=== PATIENT | female | born 1955 | race Caucasian/White ===

== ENCOUNTER 2017-09-18 15:23 | Emergency (ER) | payer SELFPAY ==
[2017-09-18 15:24] VITALS: BP 167/83; PULSE 115; RESP 22; TEMP 36.7; O2SAT 97; BMI 61.0
--- NOTE | 2017-09-18 15:45 | ED.VISSUMM ---
- ER Visit Summary Date of Service: 09/18/17 Chief Complaint: Allergic reaction History of Present Illness: The patient is a 62 F presenting with possible allergic reaction. Patient states around 11:20 AM she took a probiotic. This is the first time she has taken this medication. She states around noon she took a nap and when she woke up at 130pm she had a diffuse rash consistent with hives. She states she felt itching in her mouth and her tongue felt mildly swollen. She went to the pharmacy to have them evaluate her symptoms. The pharmacist called EMS. She was given Benadryl prior to arrival. Her symptoms are now resolving. Physical Examination: Vitals are stable. Patient is afebrile. Alert no acute distress. HEENT exam is unremarkable. No tongue swelling. No pharyngeal edema. Neck is supple. Lungs are clear and equal bilaterally. No wheezing. Heart is regular rate and rhythm. Abdomen is soft nontender nondistended. Extremities are unremarkable. Skin is warm and dry. No rash. No focal neurologic deficit. Remainder of exam is unremarkable. Emergency Department Course and Treatment: Patient is given Solu-Medrol IV. She is requesting to take her home dose of Ativan. Urinalysis is unremarkable. She was observed in the ED and had resolution of her symptoms. On repeat exam she has no tongue swelling or pharyngeal edema. Lungs are clear to auscultation bilaterally. She has no rash. Advised to discontinue use of probiotic. She is advised to follow-up with her primary care physician. Advised return ED if worsening complaints. Disposition: Discharge home Impression: Allergic reaction This note was generated with [employer] dictation software. It may contain incorrect words, spelling, and punctuation that were not noted in review of the chart prior to signing ED Disposition - Plan for ED Patient: Chief Complaint: Allergic Reaction Instructions: ED Drug React Allergic Referrals: Bradly Gutierres MD [Primary Care Provider] -
[2017-09-18 15:48] VITALS: BP 178/64; PULSE 93; RESP 15; O2SAT 97
[2017-09-18] MEDS: MethylPREDNISolone 125 MG/2 ML Vial IV (15:54)
[2017-09-18 16:00] LABS: Bacteria 0 SEEN /hpf (None Seen); Mucous, Urine 0 SEEN /hpf (<or=2+); Red Blood Cells-Urine 0 SEEN /hpf (0-5); Squamous Epithelial Cells - UA 0 SEEN /hpf (5-10); White Blood Cells 0 SEEN /hpf (0-5)
[2017-09-18 16:02] LABS: Color, Urine Yellow (Yellow); Glucose, Dipstick Normal (Normal); Ketone-Dipstick Negative (Negative); Leukocyte Esterase-Dipstick 25 /ul (Negative); Nitrite-Dipstick Negative (Negative); Occult Blood-Urine Negative /ul (Negative); Protein-Dipstick Negative (Negative); Urine Bilirubin Dipstick Negative (Negative); Urine Clarity Clear (Clear); Urine Urobilinogen Normal (Normal)
--- NOTE | 2017-09-18 16:33 | ED.DEP ---
ED Disposition - Plan for ED Patient: Chief Complaint: Allergic Reaction Instructions: ED Drug React Allergic Referrals: Bradly Gutierres MD [Primary Care Provider] -
[2017-09-18 18:02] VITALS: BP 158/59; PULSE 90; RESP 12; O2SAT 95
[2017-09-18 18:26] VITALS: BP 158/59; PULSE 78; RESP 15; O2SAT 95
== END 2017-09-18 18:34 | disposition home or self-care (01) ==
PROVIDERS: Emergency Provider Emergency Medicine; Family Provider Family Medicine; PCP Family Medicine
DX: T78.40XA Allergy, unspecified, initial encounter (principal); X58.XXXA Exposure to other specified factors, initial encounter; K21.9 Gastro-esophageal reflux disease without esophagitis; E11.9 Type 2 diabetes mellitus without complications; I10 Essential (primary) hypertension; F32.9 Major depressive disorder, single episode, unspecified; Z79.82 Long term (current) use of aspirin; Z79.84 Long term (current) use of oral hypoglycemic drugs; Z79.899 Other long term (current) drug therapy
CPT/HCPCS: 81001; 96374; 99284

== ENCOUNTER → 2020-04-20 14:07 | Outpatient (CLI) | payer MEDICARE, OTHER, SELFPAY ==
[2020-04-20 17:29] LABS: Absolute Lymphocyte Count 2.02 X10^3/uL (0.83-4.51); Absolute Neutrophil Count 6.6 X10^3/uL (2.0-7.7); Basophil# 0.06 X10^3/uL; Basophil% 0.7 % (0-1); Eosinophil# 0.05 X10^3/uL; Eosinophils% 0.5 % (0-5); Hematocrit 39.6 % (37-47); Hemoglobin 12.4 g/dL (12.0-15.0); Lymphocyte # 2.02 X10^3/ul (4.0); Mean Corp Hgb Conc 31.3 g/dL (32-36); Mean Corpuscular Hgb 28.4 pg (27.0-32.0); Mean Corpuscular Volume 90.8 fL (81-99); Monocyte# 0.44 X10^3/uL; Monocyte% 4.8 % (0-10); NRBC Flagged by Analyzer 0 % (0-5); Neutrophil # 6.57 X10^3/uL (2.7-7.7); Neutrophil % 71.5 % (47-70); Platelet Count 326 K/mm3 (150-450); RBC Distribution Width CV 13.2 % (11.6-14.6); RBC Distribution Width SD 44.3 fl (35.1-43.9); Red Blood Count 4.36 M/mm3 (4.2-5.4); White Blood Count 9.2 K/mm3 (4.4-11.0)
[2020-04-20 17:41] LABS: Erythrocyte Sedimentation Rate 14 mm/hr (0-30)
[2020-04-20 18:03] LABS: ALB/GLOB Ratio 1.1 RATIO (0.9-2.4); AST(SGOT) 14 U/L (15-37); Alanine Aminotransfer ALT/SGPT 20 U/L (13-56); Albumin, Serum 4.2 g/dL (3.2-5.0); Alkaline Phosphatase 65 U/L (45-117); Anion Gap 6 (5-15); BUN 27 mg/dL (7-18); BUN/Creat Ratio 20.5 RATIO (10-20); CRP < 2.90 mg/L (0.0-3.0); Calcium,Total 9.4 mg/dL (8.5-10.1); Chloride 106 mmol/L (98-107); Creatinine, Serum 1.32 mg/dL (0.55-1.02); EST Glomerular Filtration Rate 43 mL/min (>60); Est Glom Filt Rate - Afr Amer 52 mL/min (>60); Globulin 3.7 g/dL (2.2-4.2); Glucose 100 mg/dL (74-106); Potassium 4.8 mmol/L (3.5-5.1); Protein, Total 7.9 g/dL (6.4-8.2); Rheumatoid Factor < 10.0 IU/mL (<15); Sodium Level 137 mmol/L (136-145)
[2020-04-21 10:38] LABS: Hepatitis B Surface Antibody Non-Reactive; Hepatitis B Surface Antigen Non-Reactive (Nonreactive); Hepatitis C Antibody Non-Reactive (Nonreactive)
[2020-04-22 16:56] LABS: ANTINUCLEAR ANTIBODIES DIRECT Negative (Negative)
[2020-04-24 10:59] LABS: CCP IgG Antibodies 7 units (0-19); Hepatitis B Core AB IgM Negative (Negative)
== END ==
PROVIDERS: PCP Family Medicine; Referring Provider Internal Medicine Rheumatology; Visit Provider Internal Medicine Rheumatology
DX: M06.4 Inflammatory polyarthropathy (principal); M79.7 Fibromyalgia; M19.041 Primary osteoarthritis, right hand; M50.30 Other cervical disc degeneration, unspecified cervical region; M47.892 Other spondylosis, cervical region; M47.897 Other spondylosis, lumbosacral region; K21.9 Gastro-esophageal reflux disease without esophagitis; I10 Essential (primary) hypertension; E11.9 Type 2 diabetes mellitus without complications; F41.9 Anxiety disorder, unspecified; J30.9 Allergic rhinitis, unspecified
CPT/HCPCS: 36415; 80053; 85025; 85652; 86038; 86140; 86200; 86431; 86705; 86706; 86803; 87340

== ENCOUNTER 2020-11-01 18:30 | Inpatient (IN) | payer MEDICARE, SELFPAY ==
[2020-11-01 16:38] VITALS: BMI 25.1
[2020-11-01 17:38] VITALS: BP 144/53; PULSE 77; RESP 18; TEMP 36.7; O2SAT 98
--- NOTE | 2020-11-01 18:21 | PCM.HP.STD ---
HPI - General General Date of Admission: 11/01/20 HPI Narrative RUSTY SIBLEY, is a 65 F who presents as a direct admit from [facility] on account of hyponatremia. Patient has an extensive past medical history as outlined. She went to the outside hospital on 11/01/2020 with a complaint of abdominal pain and bloating. She had been seen on 10/28/2020 for similar symptoms and had a CT of the abdomen done on outpatient basis 2 days prior to this admission on account of abdominal pain which was reportedly normal. She still however had abdominal pain though she did not have any nausea vomiting or diarrhea. She went into the [facility] ED and was found to have a sodium of 117. According to the ED doctor over there, her sodium usually runs in the 120s. The reason for the low sodium is unclear. She denies having any history of low sodium. She denies being a chronic alcohol user and also denies any thyroid problems. Her labs that were unremarkable and she was hydrated with IV fluids and transferred to [facility] for further work-up. Patient does have a history of smoking but has not been screened for lung cancer before. On arrival, vitals show blood pressure 144/53, pulse rate of 77 and respiratory of 18 with temperature 98 Fahrenheit. She has been admitted to be managed for acute on chronic hyponatremia. [facility] Medical History Anxiety Diabetes Fibromyalgia Hypertension Osteoporosis Rheumatoid arthritis Smoker Home Medications aspirin 325 mg PO 0400 09/18/17 [History Last Taken 11/01/20 04:00] guaifenesin [Mucus Relief] 400 mg PO 0400,1000,1600 09/18/17 [History Last Taken Unknown] lisinopril 40 mg PO 1000 09/18/17 [History Last Taken 11/01/20 10:00] lorazepam 1 mg PO 0400,1000,1600,2200 09/18/17 [History Last Taken 11/01/20 10:00] metformin 750 mg PO 2200 09/18/17 [History Last Taken 10/31/20 22:00] omeprazole 40 mg PO 0400 09/18/17 [History Last Taken 11/01/20 04:00] prednisone 5 mg PO 0800 09/18/17 [History Last Taken 11/01/20 08:00] acetaminophen [Tylenol Ex Str Rapid Release] 1,000 mg PO 1000,1600,2200 11/01/20 [History Last Taken 11/01/20 10:00] amlodipine 10 mg PO 1800 11/01/20 [History Last Taken Unknown] cetirizine [Zyrtec] 20 mg PO 1000 11/01/20 [History Last Taken Unknown] famotidine [Pepcid] 20 mg PO 0400,1600 11/01/20 [History Last Taken Unknown] fluticasone propionate [Flonase Allergy Relief] 4 spray INTRANASAL 0800 11/01/20 [History Last Taken 11/01/20 08:00] hydroxychloroquine 200 mg PO 1000,2200 11/01/20 [History Last Taken Unknown] Allergy/AdvReac Type Severity Reaction Status Date / Time banana Allergy Angioedema Verified 09/18/17 15:28 sulfamethoxazole Allergy Hives Verified 11/01/20 17:34 [From Bactrim] trimethoprim [From Bactrim] Allergy Hives Verified 11/01/20 17:34 perfume AdvReac Shortness Verified 11/01/20 17:34 of breath FRUIT AdvReac Upset Uncoded 09/18/17 15:28 Stomach Social History Smoking Status: Current every day smoker ROS Constitutional Constitutional: Denies anorexia, change in weight, fatigue or fever(s) ENT HEENT: Denies dysphagia, epistaxis, headache(s), nasal discharge or sore throat Cardiovascular Cardiovascular: Reports chest pain; Denies edema, lightheadedness, orthopnea, palpitations, paroxysmal nocturnal dyspnea or rapid heart rate Respiratory/Chest Respiratory/Chest: Denies cough, hemoptysis, productive cough, shortness of breath at rest or shortness of breath with exertion Gastrointestinal Gastrointestinal: Reports abdominal pain; Denies constipation, diarrhea, dyspepsia, loose stools, nausea or vomiting Genitourinary Genitourinary: Denies burning urination, dysuria or urinary frequency Musculoskeletal Musculoskeletal: Denies arthralgias or back pain Neurologic Neurologic: Denies abnormal speech, confusion, focal weakness or seizures Psychiatric Psychiatric: Denies anxiety Hematologic/Lymphatic Hematologic/Lymphatic: Denies anemia Vital Signs Vital Signs Vital Signs: 11/01/20 17:38 Temperature 98.0 F Temperature Source Oral Pulse Rate 77 Respiratory Rate 18 Blood Pressure 144/53 H Blood Pressure Mean 83 Blood Pressure Source Monitor Blood Pressure Position Semi-Fowlers Blood Pressure Location Right Arm Pulse Ox 98 Oxygen Delivery Method Room Air Physical Exam Const alert, oriented x3 and no apparent distress General Appearance: cooperative HEENT normocephalic Eyes PERRL, EOMs intact bilaterally and conjunctivae normal Neck no lymphadenopathy Resp normal respiratory effort, no retractions, no use of accessory muscles and clear to auscultation bilaterally Cardio regular rate, regular rhythm, S1 normal heart sound, S2 normal heart sound and no murmurs GI soft to palpation, non-tender and non-distended GI Narrative: abdomen mildly distended, nontender, normal bowel sounds, no organomegaly. Extremity normal to inspection, full ROM and no clubbing, cyanosis or edema Peripheral Pulses: Yes pulses 2+ throughout Skin no rashes or lesions noted Neuro oriented x3 Sensorium / Orientation: awake and alert Psych affect normal Lab / Micro Data Result Diagrams: 11/01/20 19:16 11/02/20 05:58 Assessment & Plan Assessment/Plan (1) Hyponatremia: PLAN: #Acute on chronic hyponatremia Patient sodium was 117 at outside hospital. Apparently has a history of hyponatremia with sodium running in the 120s. Will check BMP. Check serum osmolality and urine osmolality as well as urine sodium Hydrate with IV fluid normal saline and trend sodium with every 4 hourly BMP. Consult nephrology. Patient will likely need CT of the chest on outpatient basis for lung cancer screening in light of her smoking history and her age. goal is to correct sodium between 6-8 mmol over next 24 hours. #Type 2 diabetes mellitus: On Metformin. Insulin sliding scale. Checks AC at bedtime. #History of rheumatoid arthritis: On hydroxychloroquine and prednisone 5 mg daily #Hypertension: On amlodipine 10 mg daily. #History of fibromyalgia: Stable #History of smoking: counseled to quit DVT prophylaxis: Lovenox CODE STATUS: Full code Patient counseled about difference between full code, DNR CCA and DNR CCA. Patient elects to be full code. Total [id number] time 17 minutes. Visit Charges Inpatient E&M: 98378 Init Hosp L3 Procedures Hospitalists Procedures: 61074 Advncd Care Plan 30 Min
[2020-11-01 18:59] VITALS: PULSE 89
[2020-11-01 19:38] LABS: Hematocrit 31.6 % (37-47); Hemoglobin 10.4 g/dL (12.0-15.0); Mean Corp Hgb Conc 32.9 g/dL (32-36); Mean Corpuscular Hgb 27.7 pg (27.0-32.0); Mean Platelet Vol. 8.8 fl (6.2-12.0); Platelet Count 255 K/mm3 (150-450); RBC Distribution Width SD 36.5 fl (35.1-43.9); Red Blood Count 3.76 M/mm3 (4.2-5.4); White Blood Count 6.1 K/mm3 (4.4-11.0)
[2020-11-01 19:49] LABS: Anion Gap 8 (5-15); BUN 11 mg/dL (7-18); BUN/Creat Ratio 8.3 RATIO (10-20); Calcium,Total 8.6 mg/dL (8.5-10.1); Chloride 95 mmol/L (98-107); Creatinine, Serum 1.33 mg/dL (0.55-1.02); EST Glomerular Filtration Rate 42 mL/min (>60); Est Glom Filt Rate - Afr Amer 51 mL/min (>60); Estimated Creatinine Clearance 41.97 ml/min; Glucose 167 mg/dL (74-106); Potassium 4.3 mmol/L (3.5-5.1); Sodium Level 125 mmol/L (136-145)
[2020-11-01] MEDS: 0.9% Saline Lock 10 ML Syringe IV (20:11)
[2020-11-01] MEDS: 0.9% Normal Saline 1,000 ML 125 ML IV (20:11)
[2020-11-01 20:30] LABS: Urine Sodium 36 mmol/L (Not Establ.)
[2020-11-01 20:31] LABS: Osmolality, Urine 126 mOsm/KG
[2020-11-01 20:32] LABS: Osmolality, Serum 267 mOsm/KG (280-301)
[2020-11-01 21:53] VITALS: BP 139/61; PULSE 77; RESP 16; TEMP 37.1; O2SAT 95
[2020-11-01] MEDS: LORazepam 1 MG Tablet PO (21:57)
[2020-11-01] MEDS: metFORMIN HCl 500 MG Tablet 750 MG PO (21:57)
[2020-11-01] MEDS: Hydroxychloroquine 200 MG Tablet PO (21:59)
[2020-11-01] MEDS: Acetaminophen 500 MG Tablet 1000 MG PO (21:59)
[2020-11-01 23:09] LABS: Anion Gap 7 (5-15); BUN 14 mg/dL (7-18); BUN/Creat Ratio 11.2 RATIO (10-20); Calcium,Total 8.4 mg/dL (8.5-10.1); Chloride 97 mmol/L (98-107); Creatinine, Serum 1.25 mg/dL (0.55-1.02); EST Glomerular Filtration Rate 46 mL/min (>60); Est Glom Filt Rate - Afr Amer 55 mL/min (>60); Estimated Creatinine Clearance 44.66 ml/min; Glucose 119 mg/dL (74-106); Potassium 4.2 mmol/L (3.5-5.1); Sodium Level 126 mmol/L (136-145)
[2020-11-02] VITALS (10 sets, daily range): BP systolic 116–138; BP diastolic 40–80; PULSE 72–87; RESP 15–18; TEMP 36.5–36.8; O2SAT 95–97
[2020-11-02] MEDS: LORazepam 1 MG Tablet PO ×4 (03:54→22:02)
[2020-11-02] MEDS: Aspirin E.C. 325 MG Tablet PO (03:56)
[2020-11-02] MEDS: Famotidine 20 MG Tablet PO ×2 (03:56→15:54)
[2020-11-02] MEDS: 0.9% Normal Saline 1,000 ML 125 ML IV (04:01)
[2020-11-02 06:55] LABS: Thyroid Stim Hormone (TSH) 4.32 uIU/mL (0.358-3.74)
[2020-11-02] MEDS: predniSONE 5 MG Tablet PO (08:20)
[2020-11-02] MEDS: Fluticasone 0.05% 1 SPRAY NASAL.SRY 4 SPRAY NASAL (08:20)
[2020-11-02 09:25] LABS: Anion Gap 4 (5-15); BUN 13 mg/dL (7-18); BUN/Creat Ratio 10.6 RATIO (10-20); Calcium,Total 8.5 mg/dL (8.5-10.1); Chloride 104 mmol/L (98-107); Creatinine, Serum 1.23 mg/dL (0.55-1.02); EST Glomerular Filtration Rate 46 mL/min (>60); Est Glom Filt Rate - Afr Amer 56 mL/min (>60); Estimated Creatinine Clearance 45.39 ml/min; Glucose 84 mg/dL (74-106); Potassium 4.5 mmol/L (3.5-5.1); Sodium Level 133 mmol/L (136-145)
[2020-11-02] MEDS: Lisinopril 40 MG Tablet PO (09:48)
[2020-11-02] MEDS: Hydroxychloroquine 200 MG Tablet PO ×2 (09:48→22:02)
[2020-11-02] MEDS: Loratadine 10 MG Tablet PO (09:48)
[2020-11-02] MEDS: Enoxaparin 40 MG/0.4 ML Syringe SC (09:48)
[2020-11-02] MEDS: Acetaminophen 500 MG Tablet 1000 MG PO ×3 (09:48→22:02)
--- NOTE | 2020-11-02 10:45 | CASEMGMT ---
RN IMELDA Face to Face with patient for initial transition planning/care coordination assessment. RN CM introduced self and role at [facility]. Patient lying in bed, alert and oriented. Patient willing to participate in assessment and is able to answer all questions appropriately. Care providers, pharmacy, and demographics verified. Patient wishes to discharge home, denies need for home health at this time. Patient states he has no further needs or concerns at this time. CM to follow for discharge planning needs that may arise. PCP: Bhavik Specialists: Tammie Maintenance Aide Preferred Pharmacy: [facility] Insurance: [employer] Prescription Benefit: yes Living Will/HPOA: none LNOK: sons Living Arrangements: Patient lives alone in a single floor apartment with 7 steps and railing to enter the home. Patient states she is independent and able to ambulate stairs. Transportation: self/sons DME/HHC: Patient states she has glucometer and testing supplies at home. Patient denies previous SNF or HHC. Disposition Plan: Patient to discharge home with family support and follow-up plans in place. Mary MOYER, RN, CM
--- NOTE | 2020-11-02 13:11 | PN.HOSP_ITS ---
Documented by User: Raymond CRAIG 11/02/20 13:23 Subjective Subjective Patient is a 65-year-old female who was observed finishing her breakfast and walking around the room,, alert and orient x3. Denies any change or progression in symptoms. Denies chest pain, shortness of breath, sputum production, palp itations, fever, chills, N/V/D. Objective Data Objective Data Vital Signs: Vital Signs Temp Pulse Resp BP Pulse Ox 98.0 F 77 16 127/46 H 96 11/02/20 12:27 11/02/20 12:27 11/02/20 12:27 11/02/20 12:27 11/02/20 12:27 Oxygen Delivery Method Room Air Weight: 165 lb 5.547 oz Body Mass Index (BMI) 25.1 Intake & Output: Intake and Output for Last 24 Hours 10/31/20 11/01/20 11/02/20 23:59 23:59 23:59 Intake Total 875 / 875 2304.17 / 2304.17 Balance 875 / 875 2304.17 / 2304.17 Lab / Micro Data Result Diagrams: 11/01/20 19:16 11/02/20 05:58 Labs: Laboratory Results - last 24 hr 11/01/20 11/01/20 11/01/20 18:20 19:16 19:16 WBC 6.1 RBC 3.76 L Hgb 10.4 L Hct 31.6 L MCV 84.0 MCH 27.7 MCHC 32.9 RDW Std Deviation 36.5 RDW Coeff of Keron 12.0 Plt Count 255 MPV 8.8 Sodium 125 L Potassium 4.3 Chloride 95 L Carbon Dioxide 22.0 Anion Gap 8 BUN 11 Creatinine 1.33 H Estim Creat Clear Calc 41.97 Est GFR (MDRD) Af Amer 51 L Est GFR (MDRD) Non-Af 42 L BUN/Creatinine Ratio 8.3 L Glucose 167 H Serum Osmolality 267 L Calcium 8.6 TSH Urine Osmolality Ur Random Sodium 11/01/20 11/01/20 11/02/20 20:00 22:40 05:58 WBC RBC Hgb Hct MCV MCH MCHC RDW Std Deviation RDW Coeff of Keron Plt Count MPV Sodium 126 L Potassium 4.2 Chloride 97 L Carbon Dioxide 22.0 Anion Gap 7 BUN 14 Creatinine 1.25 H Estim Creat Clear Calc 44.66 Est GFR (MDRD) Af Amer 55 L Est GFR (MDRD) Non-Af 46 L BUN/Creatinine Ratio 11.2 Glucose 119 H Serum Osmolality Calcium 8.4 L TSH 4.32 H Urine Osmolality 126 Ur Random Sodium 36 11/02/20 05:58 WBC RBC Hgb Hct MCV MCH MCHC RDW Std Deviation RDW Coeff of Keron Plt Count MPV Sodium 133 L Potassium 4.5 Chloride 104 Carbon Dioxide 25.0 Anion Gap 4 L BUN 13 Creatinine 1.23 H Estim Creat Clear Calc 45.39 Est GFR (MDRD) Af Amer 56 L Est GFR (MDRD) Non-Af 46 L BUN/Creatinine Ratio 10.6 Glucose 84 Serum Osmolality Calcium 8.5 TSH Urine Osmolality Ur Random Sodium Physical Exam Narrative See subjective. Const alert, oriented x3 and no apparent distress HEENT head/scalp atraumatic, moist oral mucous membranes and oropharynx normal Head and Scalp: normocephalic Eyes PERRL and EOMs intact bilaterally Neck no lymphadenopathy, supple and no JVD Resp normal respiratory effort, no retractions, no use of accessory muscles and clear to auscultation bilaterally Cardio regular rate, regular rhythm, no murmurs and no JVD GI normal to inspection, nondistended, normoactive bowel sounds, soft to palpation, non-tender and non-distended Extremity normal to inspection, full ROM and no clubbing, cyanosis or edema Skin no rashes or lesions noted, no wounds and skin turgor normal Neuro CN's II-XII intact bilaterally Psych affect normal Assessment & Plan Assessment/Plan (1) Diabetes mellitus type 2 in nonobese: (2) Rheumatoid arthritis: (3) Hypertension: (4) Tobacco abuse: (5) Hyponatremia: PLAN: 1) Hyponatremia Patient has a history of hyponatremia in the 120s. Sodium currently at 133, after 1000 mL normal saline infused. Serum osmolality 267. Nephrology consult ordered. Anticipate discharge tomorrow, after nephrology consult. Plan; sodium chloride 250 mL as needed, continue to monitor BMP. 2) DM2 Continue Metformin. 3) rheumatoid arthritis Continue hydroxychloroquine and prednisone. 4) tobacco abuse Cessation counseled. Plan; nicotine patch ordered, outpatient CT of the chest recommended given patient smoking history, age and chronic hyponatremia. 5) HTN Continue Norvasc and lisinopril. DVT prophylaxis -Lovenox SC Patient seen by Raymond Horton PA-C, under the supervision of Dr. Sauer. Documented by User: Dr. Paul Sauer MD 11/02/20 16:45 Subjective Subjective Patient admitted with hyponatremia. Denies fluid loss like vomiting, diarrhea. Denies chronic alcohol use. Patient has low solute intake. Objective Data Lab / Micro Data Result Diagrams: 11/01/20 19:16 11/02/20 05:58 Physical Exam Narrative General: Alert, Oriented x3, Cooperative HEENT: Atraumatic, PERRLA, EOMI, Normocephalic Oral: No Gingival or Mucosal Lesions/ Ulcerations Neck: Supple, No JVD, Negative Carotid Bruits Lungs: Air entry diminished in bilateral lung bases. No crepitation/rhonchi Cardiovascular: Regular rate, Regular Rhythm, Normal S1, Normal S2, No murmurs Abdomen: Bowel Sounds Present, Soft, Non Tender, Non-Distended : No renal angle tenderness. No suprapubic tenderness. Extremities: No edema, Capillary Refill Less than 3 Seconds Skin: No rashes, No breakdown Musculoskeletal: No Tenderness to Palpation of Joints or Extremities Neurological: Cranial nerves II-XII grossly intact, Deep Tendon Reflexes 2+/4 and Symmetrical, Neuro grossly intact Psych/Mental Status: Normal Affect, Appropriate. Assessment & Plan Assessment/Plan (1) Hyponatremia: PLAN: This patient was seen in conjunction with RAFA Hurtado. I have independently interviewed and examined the patient and reviewed pertinent history, examination findings, laboratory and plan of management. I have reviewed the note and agree with the documented findings with the few additional points. In brief, patient was directly admitted from [facility] for hypo natremia. Patient has mild abdominal pain and bloating and CT abdomen was reported normal about 2 days ago as an outpatient. Sodium was 117/20 ED but currently 133. Serum osmolality 267, urine osmolarity 126, urine sodium 36. District Resource Officer is consulted. I think her hyponatremia is mainly low solute intake related and is hypotonic isovolemic hyponatremia. Patient is started on desmopressin and D5W as sodium is corrected too rapidly. Other comorbidities as mentioned above. I have discussed my assessment with RAFA Hurtado and orders have been reviewed.
--- NOTE | 2020-11-02 14:43 | PCM.CONS.R ---
Assessment & Plan Assessment/Plan (1) Hyponatremia: PLAN: Sodium was 117 yesterday at 11:40 AM and 126 2 days prior to that and today is 133. Ordered stat DDAVP and also D5 water to relower the sodium as it corrected too fast considering this was chronic hNA per outside hospital labs.U osm was 126 yesterday. From history unclear what was the stimulus for ADH release but it seems to be resolved now. After 2 hours of D5 water we will check a BMP stat and decide the need for further D5 water or not.d/w patient and RN and STENCIL CUTTER at length.Thanks for consult. HPI Consult Data Date of Consult: 11/02/20 HPI Narrative HPI Narrative: .RUSTY SIBLEY, is a 65 F who presents From [facility] as a direct admit for hyponatremia. She presented initially with abdominal pain and bloating and apparently she had a normal CT abdomen 2 days prior to that. Her sodium was 117 11.40 am yesterday Denies nausea vomiting or diarrhea. States she has chronic abdominal pain denies taking any diuretics. Sodium was 126 yesterday 10:40 PM and 133 today at 5:58 AM. There is no repeat sodium. Her previous sodium was 137 in April 2020. She denies headache focal weakness. Denies taking NSAIDs at home. [facility] Medical History Anxiety Diabetes Fibromyalgia Hypertension Osteoporosis Rheumatoid arthritis Smoker Home Medications aspirin 325 mg PO 0400 09/18/17 [History Last Taken 11/01/20 04:00] guaifenesin [Mucus Relief] 400 mg PO 0400,1000,1600 09/18/17 [History Last Taken Unknown] lisinopril 40 mg PO 1000 09/18/17 [History Last Taken 11/01/20 10:00] lorazepam 1 mg PO 0400,1000,1600,2200 09/18/17 [History Last Taken 11/01/20 10:00] metformin 750 mg PO 2200 09/18/17 [History Last Taken 10/31/20 22:00] omeprazole 40 mg PO 0400 09/18/17 [History Last Taken 11/01/20 04:00] prednisone 5 mg PO 0800 09/18/17 [History Last Taken 11/01/20 08:00] acetaminophen [Tylenol Ex Str Rapid Release] 1,000 mg PO 1000,1600,2200 11/01/20 [History Last Taken 11/01/20 10:00] amlodipine 10 mg PO 1800 11/01/20 [History Last Taken Unknown] cetirizine [Zyrtec] 20 mg PO 1000 11/01/20 [History Last Taken Unknown] famotidine [Pepcid] 20 mg PO 0400,1600 11/01/20 [History Last Taken Unknown] fluticasone propionate [Flonase Allergy Relief] 4 spray INTRANASAL 0800 11/01/20 [History Last Taken 11/01/20 08:00] hydroxychloroquine 200 mg PO 1000,2200 11/01/20 [History Last Taken Unknown] Allergy/AdvReac Type Severity Reaction Status Date / Time banana Allergy Angioedema Verified 09/18/17 15:28 sulfamethoxazole Allergy Hives Verified 11/01/20 17:34 [From Bactrim] trimethoprim [From Bactrim] Allergy Hives Verified 11/01/20 17:34 perfume AdvReac Shortness Verified 11/01/20 17:34 of breath FRUIT AdvReac Upset Uncoded 09/18/17 15:28 Stomach Social History Smoking Status: Current every day smoker Physical Exam Const alert and no apparent distress General Appearance: comfortable HEENT normocephalic HEENT Narrative: atraumatic Neck General: normal visual inspection and trachea midline Resp normal respiratory effort and clear to auscultation bilaterally Cardio regular rate, regular rhythm, S1 normal heart sound and S2 normal heart sound GI soft to palpation and non-tender Extremity no clubbing, cyanosis or edema Neuro Sensorium / Orientation: awake and alert Lab / Micro Data Result Diagrams: 11/01/20 19:16 11/02/20 05:58 Labs: Laboratory Results - last 24 hr 11/01/20 11/01/20 11/01/20 18:20 19:16 19:16 WBC 6.1 RBC 3.76 L Hgb 10.4 L Hct 31.6 L MCV 84.0 MCH 27.7 MCHC 32.9 RDW Std Deviation 36.5 RDW Coeff of Keron 12.0 Plt Count 255 MPV 8.8 Sodium 125 L Potassium 4.3 Chloride 95 L Carbon Dioxide 22.0 Anion Gap 8 BUN 11 Creatinine 1.33 H Estim Creat Clear Calc 41.97 Est GFR (MDRD) Af Amer 51 L Est GFR (MDRD) Non-Af 42 L BUN/Creatinine Ratio 8.3 L Glucose 167 H Serum Osmolality 267 L Calcium 8.6 TSH Urine Osmolality Ur Random Sodium 11/01/20 11/01/20 11/02/20 20:00 22:40 05:58 WBC RBC Hgb Hct MCV MCH MCHC RDW Std Deviation RDW Coeff of Keron Plt Count MPV Sodium 126 L Potassium 4.2 Chloride 97 L Carbon Dioxide 22.0 Anion Gap 7 BUN 14 Creatinine 1.25 H Estim Creat Clear Calc 44.66 Est GFR (MDRD) Af Amer 55 L Est GFR (MDRD) Non-Af 46 L BUN/Creatinine Ratio 11.2 Glucose 119 H Serum Osmolality Calcium 8.4 L TSH 4.32 H Urine Osmolality 126 Ur Random Sodium 36 11/02/20 05:58 WBC RBC Hgb Hct MCV MCH MCHC RDW Std Deviation RDW Coeff of Keron Plt Count MPV Sodium 133 L Potassium 4.5 Chloride 104 Carbon Dioxide 25.0 Anion Gap 4 L BUN 13 Creatinine 1.23 H Estim Creat Clear Calc 45.39 Est GFR (MDRD) Af Amer 56 L Est GFR (MDRD) Non-Af 46 L BUN/Creatinine Ratio 10.6 Glucose 84 Serum Osmolality Calcium 8.5 TSH Urine Osmolality Ur Random Sodium
[2020-11-02] MEDS: 0.9% Saline Lock 10 ML Syringe IV ×3 (15:06→22:02)
[2020-11-02] MEDS: Desmopressin Acetate 4 MCG/ML Ampul 1 MCG IV (15:12)
[2020-11-02] MEDS: amLODIPine 10 MG Tablet PO (15:54)
[2020-11-02] MEDS: guaiFENesin/D-Methorphan TAB.SR.12H 1 TABLET PO (15:55)
[2020-11-02 18:09] LABS: Anion Gap 8 (5-15); BUN 21 mg/dL (7-18); BUN/Creat Ratio 12.9 RATIO (10-20); Calcium,Total 8.5 mg/dL (8.5-10.1); Chloride 101 mmol/L (98-107); Creatinine, Serum 1.63 mg/dL (0.55-1.02); EST Glomerular Filtration Rate 34 mL/min (>60); Est Glom Filt Rate - Afr Amer 41 mL/min (>60); Estimated Creatinine Clearance 34.25 ml/min; Glucose 103 mg/dL (74-106); Potassium 4.5 mmol/L (3.5-5.1); Sodium Level 131 mmol/L (136-145)
[2020-11-02 21:30] LABS: Anion Gap 7 (5-15); BUN 21 mg/dL (7-18); Calcium,Total 8.5 mg/dL (8.5-10.1); Chloride 99 mmol/L (98-107); EST Glomerular Filtration Rate 37 mL/min (>60); Est Glom Filt Rate - Afr Amer 45 mL/min (>60); Estimated Creatinine Clearance 37.22 ml/min; Glucose 79 mg/dL (74-106); Potassium 4.2 mmol/L (3.5-5.1); Sodium Level 129 mmol/L (136-145)
[2020-11-02] MEDS: metFORMIN HCl 500 MG Tablet 750 MG PO (22:02)
[2020-11-03 03:00] VITALS: BP 146/63; PULSE 78; RESP 16; TEMP 36.7; O2SAT 96
[2020-11-03] MEDS: LORazepam 1 MG Tablet PO ×2 (04:20→09:55)
[2020-11-03] MEDS: Aspirin E.C. 325 MG Tablet PO (04:20)
[2020-11-03] MEDS: Famotidine 20 MG Tablet PO (04:20)
[2020-11-03 04:47] VITALS: PULSE 77
[2020-11-03 05:24] LABS: Absolute Lymphocyte Count 1.81 X10^3/uL (0.83-4.51); Absolute Neutrophil Count 2.7 X10^3/uL (2.0-7.7); Basophil# 0.06 X10^3/uL; Basophil% 1.1 % (0-1); Eosinophil# 0.23 X10^3/uL; Eosinophils% 4.4 % (0-5); Hematocrit 31.1 % (37-47); Lymphocyte # 1.81 X10^3/ul (0.83-4.51); Lymphocyte % 34.5 % (19-41); Mean Corp Hgb Conc 32.2 g/dL (32-36); Mean Corpuscular Hgb 27.5 pg (27.0-32.0); Mean Corpuscular Volume 85.7 fL (81-99); Mean Platelet Vol. 8.8 fl (6.2-12.0); Monocyte# 0.49 X10^3/uL; Monocyte% 9.3 % (0-10); NRBC Flagged by Analyzer 0 % (0-5); Neutrophil # 2.65 X10^3/uL (2.7-7.7); Neutrophil % 50.5 % (47-70); Platelet Count 255 K/mm3 (150-450); RBC Distribution Width CV 12.3 % (11.6-14.6); RBC Distribution Width SD 38.5 fl (35.1-43.9); Red Blood Count 3.63 M/mm3 (4.2-5.4); White Blood Count 5.3 K/mm3 (4.4-11.0)
[2020-11-03 05:44] LABS: Anion Gap 6 (5-15); BUN 17 mg/dL (7-18); BUN/Creat Ratio 15.5 RATIO (10-20); Calcium,Total 8.1 mg/dL (8.5-10.1); Chloride 98 mmol/L (98-107); EST Glomerular Filtration Rate 53 mL/min (>60); Est Glom Filt Rate - Afr Amer 64 mL/min (>60); Estimated Creatinine Clearance 50.75 ml/min; Glucose 81 mg/dL (74-106); Potassium 4.2 mmol/L (3.5-5.1); Sodium Level 128 mmol/L (136-145)
[2020-11-03] MEDS: Pantoprazole Sodium 40 MG Tablet PO (06:30)
[2020-11-03 07:00] VITALS: PULSE 68
[2020-11-03] MEDS: predniSONE 5 MG Tablet PO (07:50)
[2020-11-03] MEDS: Fluticasone 0.05% 1 SPRAY NASAL.SRY 4 SPRAY NASAL (07:50)
[2020-11-03 09:00] VITALS: BP 132/46; PULSE 66; RESP 18; TEMP 36.6; O2SAT 98
[2020-11-03] MEDS: guaiFENesin/D-Methorphan TAB.SR.12H 1 TABLET PO (09:54)
[2020-11-03] MEDS: Acetaminophen 500 MG Tablet 1000 MG PO (09:54)
[2020-11-03] MEDS: Loratadine 10 MG Tablet PO (09:54)
[2020-11-03] MEDS: Enoxaparin 40 MG/0.4 ML Syringe SC (09:55)
[2020-11-03] MEDS: Hydroxychloroquine 200 MG Tablet PO (09:55)
[2020-11-03] MEDS: Lisinopril 40 MG Tablet PO (09:55)
--- NOTE | 2020-11-03 11:04 | DCINST_ITS ---
Discharge Instructions Diet Discharge Diet: No restrictions Activity Discharge Activity: Return to Normal Activity Follow Up Care Please Follow Up With: Primary care provider When: Within the next week. Test Results: Test results from this visit will be discussed in further detail at your follow-up appointment, if applicable. Discharge Plan Admission Admit Date/Time: 11/01/20 18:30 Primary Reason for Your Visit: Hyponatremia Attending Provider: Paul Sauer Primary Care Provider: Bradly Gutierres Consulting Providers: Brionna Carrillo Discharge Orders/Prescriptions Prescriptions: New Ensure Liquid 240 ml PO BID Qty: 3792 RF: 0 Continued metformin 500 MG tablet 750 mg PO 2200 RF: 0 prednisone 5 MG tablet 5 mg PO 0800 RF: 0 aspirin 325 MG tablet,delayed release (DR/EC) 325 mg PO 0400 RF: 0 omeprazole 20 MG capsule 40 mg PO 0400 RF: 0 lorazepam 1 MG tablet 1 mg PO 0400,1000,1600,2200 RF: 0 lisinopril 40 MG tablet 40 mg PO 1000 RF: 0 guaifenesin [Mucus Relief ER] 600 MG tablet extended release 12hr 400 mg PO 0400,1000,1600 RF: 0 cetirizine [Zyrtec] 10 mg Tablet 20 mg PO 1000 RF: 0 acetaminophen 500 mg Tablet 1,000 mg PO 1000,1600,2200 RF: 0 amlodipine 10 mg tablet 10 mg PO 1800 RF: 0 hydroxychloroquine 200 mg tablet 200 mg PO 1000,2200 RF: 0 fluticasone propionate [Flonase Allergy Relief] 50 mcg/actuation [place],Suspension 4 spray INTRANASAL 0800 RF: 0 famotidine [Pepcid] 20 mg Tablet 20 mg PO 0400,1600 RF: 0 Referrals / Follow Up: Bradly Gutierres MD [Primary Care Provider] - Disposition Disposition (needs filled in before D/C Order can be placed): Home, self care
--- NOTE | 2020-11-03 12:09 | DS.PCM_ITS ---
Documented by User: Raymond CRAIG 11/03/20 12:16 Providers Date of Admission: 11/01/20 Primary Care Physician: Dr. Bradly Gutierres MD Consultations 11/01/20 18:32 Consult: Nephrology Routine Consulting Provider: Brionna Carrillo Reason for Consult: hyponatremia EMERGENT Consult: No MD Notified: Yes Date Notified:: 11/01/20 Time Notified: 18:33 Method of Notification: Text Reason For Visit: HYPONATREMIA Diagnosis Discharge Diagnosis (1) Hyponatremia: Status: Acute Code(s): E87.1 - Hypo-osmolality and hyponatremia Medications at Discharge Home Medications aspirin 325 mg PO 0400 09/18/17 guaifenesin [Mucus Relief ER] 400 mg PO 0400,1000,1600 09/18/17 lisinopril 40 mg PO 1000 09/18/17 lorazepam 1 mg PO 0400,1000,1600,2200 09/18/17 metformin 750 mg PO 2200 09/18/17 omeprazole 40 mg PO 0400 09/18/17 prednisone 5 mg PO 0800 09/18/17 acetaminophen 1,000 mg PO 1000,1600,2200 11/01/20 amlodipine 10 mg PO 1800 11/01/20 cetirizine [Zyrtec] 20 mg PO 1000 11/01/20 famotidine [Pepcid] 20 mg PO 0400,1600 11/01/20 fluticasone propionate [Flonase Allergy Relief] 4 spray INTRANASAL 0800 11/01/20 hydroxychloroquine 200 mg PO 1000,2200 11/01/20 food supplemt, lactose-reduced [Ensure] 240 ml PO BID #3792 ml 11/03/20 Hospital Course Summary of Care Provided Minutes Spent on Discharge: 35 Hospital Course: 1) Hyponatremia Patient has a history of hyponatremia in the 120s. Serum osmolality 267, urine osmolality 126 an urine sodium is 36. Patient initiated on desmopressin and D5W due to rapid sodium overcorrection. Nephrology consult ordered. Sodium level is currently 128. Believe patients hyponatremia is due to low solute intake and is hypotonic isovolemic hyponatremia. Plan; ensure initiated at discharge 240 mL p.o. twice daily x1 week, follow-up with PCP within the next week. 2) DM2 Continue Metformin. 3) rheumatoid arthritis Continue hydroxychloroquine and prednisone. 4) tobacco abuse Cessation counseled. Plan; nicotine patch ordered, outpatient CT of the chest recommended given patient smoking history, age and chronic hyponatremia. 5) HTN Continue Norvasc and lisinopril. Patient seen by Raymond Horton PA-C, under the supervision of Dr. Sauer. Physical Exam Narrative Patient is a 65-year-old female comfortably resting in a chair, alert and oriented x3. Patient reports no change or progression of symptoms from yesterday, denies headache, vision changes or confusion. Patient reports her current status is that she feels fine, however is anxious regarding her diagnosis/prognosis. Const alert, oriented x3 and no apparent distress HEENT normocephalic, head/scalp atraumatic and hearing grossly normal bilaterally Eyes PERRL, EOMs intact bilaterally and conjunctivae normal Neck no lymphadenopathy, supple and no JVD Resp normal respiratory effort, no use of accessory muscles and clear to auscultation bilaterally Cardio regular rate, regular rhythm, no murmurs and no JVD GI normal to inspection, nondistended, normoactive bowel sounds, soft to palpation, non-tender and non-distended Extremity normal to inspection, full ROM and no clubbing, cyanosis or edema Skin no rashes or lesions noted, no wounds and no jaundice Neuro CN's II-XII intact bilaterally Psych affect normal ABG / Lab / Microbiology Data Result Diagrams: 11/03/20 04:48 11/03/20 04:48 Laboratory: Laboratory Results - last 24 hr 11/02/20 11/02/20 11/03/20 17:30 20:51 04:48 WBC 5.3 RBC 3.63 L Hgb 10.0 L Hct 31.1 L MCV 85.7 MCH 27.5 MCHC 32.2 RDW Std Deviation 38.5 RDW Coeff of Keron 12.3 Plt Count 255 MPV 8.8 Immature Gran % (Auto) 0.200 Neut % (Auto) 50.5 Lymph % (Auto) 34.5 [place] % (Auto) 9.3 Eos % (Auto) 4.4 Baso % (Auto) 1.1 H Absolute Neuts (auto) 2.7 Absolute Lymphs (auto) 1.81 Nucleated RBC % 0 Sodium 131 L 129 L Potassium 4.5 4.2 Chloride 101 99 Carbon Dioxide 22.0 23.0 Anion Gap 8 7 BUN 21 H 21 H Creatinine 1.63 H 1.50 H Estim Creat Clear Calc 34.25 37.22 Est GFR (MDRD) Af Amer 41 L 45 L Est GFR (MDRD) Non-Af 34 L 37 L BUN/Creatinine Ratio 12.9 14.0 Glucose 103 79 Calcium 8.5 8.5 11/03/20 04:48 WBC RBC Hgb Hct MCV MCH MCHC RDW Std Deviation RDW Coeff of Keron Plt Count MPV Immature Gran % (Auto) Neut % (Auto) Lymph % (Auto) [place] % (Auto) Eos % (Auto) Baso % (Auto) Absolute Neuts (auto) Absolute Lymphs (auto) Nucleated RBC % Sodium 128 L Potassium 4.2 Chloride 98 Carbon Dioxide 24.0 Anion Gap 6 BUN 17 Creatinine 1.10 H Estim Creat Clear Calc 50.75 Est GFR (MDRD) Af Amer 64 Est GFR (MDRD) Non-Af 53 L BUN/Creatinine Ratio 15.5 Glucose 81 Calcium 8.1 L D/C Instructions Discharge Diet: No restrictions Discharge Activity: Return to Normal Activity Please Follow Up With: Primary care provider When: Within the next week. Meaningful Use Info Meaningful Use Diagnoses (Choose all that apply): None applicable Discharge Plan Admission Admit Date/Time: 11/01/20 18:30 Primary Reason for Your Visit: Hyponatremia Attending Provider: Paul Sauer Primary Care Provider: Bradly Gutierres Consulting Providers: Brionna Carrillo Discharge Orders/Prescriptions Prescriptions: New Ensure Liquid 240 ml PO BID Qty: 3792 RF: 0 Continued metformin 500 MG tablet 750 mg PO 2200 RF: 0 prednisone 5 MG tablet 5 mg PO 0800 RF: 0 aspirin 325 MG tablet,delayed release (DR/EC) 325 mg PO 0400 RF: 0 omeprazole 20 MG capsule 40 mg PO 0400 RF: 0 lorazepam 1 MG tablet 1 mg PO 0400,1000,1600,2200 RF: 0 lisinopril 40 MG tablet 40 mg PO 1000 RF: 0 guaifenesin [Mucus Relief ER] 600 MG tablet extended release 12hr 400 mg PO 0400,1000,1600 RF: 0 cetirizine [Zyrtec] 10 mg Tablet 20 mg PO 1000 RF: 0 acetaminophen 500 mg Tablet 1,000 mg PO 1000,1600,2200 RF: 0 amlodipine 10 mg tablet 10 mg PO 1800 RF: 0 hydroxychloroquine 200 mg tablet 200 mg PO 1000,2200 RF: 0 fluticasone propionate [Flonase Allergy Relief] 50 mcg/actuation [place],Suspension 4 spray INTRANASAL 0800 RF: 0 famotidine [Pepcid] 20 mg Tablet 20 mg PO 0400,1600 RF: 0 Referrals / Follow Up: Bradly Gutierres MD [Primary Care Provider] - Disposition Disposition (needs filled in before D/C Order can be placed): Home, self care Documented by User: Dr. Paul Sauer MD 11/03/20 15:25 Providers Date of Admission: 11/01/20 Reason For Visit: HYPONATREMIA Medications at Discharge Home Medications aspirin 325 mg PO 0400 09/18/17 guaifenesin [Mucus Relief ER] 400 mg PO 0400,1000,1600 09/18/17 lisinopril 40 mg PO 1000 09/18/17 lorazepam 1 mg PO 0400,1000,1600,2200 09/18/17 metformin 750 mg PO 2200 09/18/17 omeprazole 40 mg PO 0400 09/18/17 prednisone 5 mg PO 0800 09/18/17 acetaminophen 1,000 mg PO 1000,1600,2200 11/01/20 amlodipine 10 mg PO 1800 11/01/20 cetirizine [Zyrtec] 20 mg PO 1000 11/01/20 famotidine [Pepcid] 20 mg PO 0400,1600 11/01/20 fluticasone propionate [Flonase Allergy Relief] 4 spray INTRANASAL 0800 11/01/20 hydroxychloroquine 200 mg PO 1000,2200 11/01/20 food supplemt, lactose-reduced [Ensure] 240 ml PO BID #3792 ml 11/03/20 Hospital Course Summary of Care Provided Hospital Course: This patient was seen in conjunction with RAFA Hurtado.? I have independently interviewed and examined the patient and reviewed pertinent history, examination findings, laboratory and plan of management.? I have? reviewed the note and agree with the documented findings with the few? additional points. In brief, patient was directly admitted from [facility] ER for hypo natremia.? Patient has mild abdominal pain and bloating and CT abdomen was reported normal about 2 days ago as an outpatient.? Sodium was 117 in ED but currently 133.? Serum osmolality 267, urine osmolarity 126, urine sodium 36.? Excavator Operator was consulted.? I think her hyponatremia is mainly low solute intake related and is hypotonic isovolemic hyponatremia.? SIADH not supported by low urine osmolality. Patient is started on desmopressin and D5W as sodium is corrected too rapidly. Sodium was decreased to 129 and today 128 probably effect of DDAVP/desmopressin. Patient was suggested to take Ensure and live 8 ounce, 350 senthil twice daily. Prescription given. Other comorbidities as mentioned above. Discharge medication reconciliation done. Discharge follow-up instructions completed. Discharge process discussed with the patient and all questions were answered to patient's satisfaction. Total time spent, exact 35 minutes on discharge meds reconciliation, examination, coordination of care with nurses and ancillary staff, review of imaging and blood test and discussion with the patient on follow-up instructions I have discussed my assessment with RAFA Hurtado and orders have been reviewed. Physical Exam Narrative Seen and examined. Denies headache, change in mental status, seizure or abnormal involuntary movement. Physical exam General: Alert, Oriented x3, Cooperative HEENT: Atraumatic, PERRLA, EOMI, Normocephalic Oral: No Gingival or Mucosal Lesions/ Ulcerations Neck: Supple, No JVD, Negative Carotid Bruits Lungs: Air entry diminished in bilateral lung bases. No crepitation/rhonchi Cardiovascular: Regular rate, Regular Rhythm, Normal S1, Normal S2, No murmurs Abdomen: Bowel Sounds Present, Soft, Non Tender, Non-Distended : No renal angle tenderness. No suprapubic tenderness. Extremities: No edema, Capillary Refill Less than 3 Seconds Skin: No rashes, No breakdown Musculoskeletal: No Tenderness to Palpation of Joints or Extremities Neurological: Cranial nerves II-XII grossly intact, Deep Tendon Reflexes 2+/4 and Symmetrical, Neuro grossly intact Psych/Mental Status: Normal Affect, Appropriate. ABG / Lab / Microbiology Data Result Diagrams: 11/03/20 04:48 11/03/20 04:48 Discharge Plan Admission Admit Date/Time: 11/01/20 18:30 Primary Reason for Your Visit: Hyponatremia Attending Provider: Paul Sauer Primary Care Provider: Bradly Gutierres Consulting Providers: Brionna Carrillo Discharge Orders/Prescriptions Prescriptions: New Ensure Liquid 240 ml PO BID Qty: 3792 RF: 0 Continued metformin 500 MG tablet 750 mg PO 2200 RF: 0 prednisone 5 MG tablet 5 mg PO 0800 RF: 0 aspirin 325 MG tablet,delayed release (DR/EC) 325 mg PO 0400 RF: 0 omeprazole 20 MG capsule 40 mg PO 0400 RF: 0 lorazepam 1 MG tablet 1 mg PO 0400,1000,1600,2200 RF: 0 lisinopril 40 MG tablet 40 mg PO 1000 RF: 0 guaifenesin [Mucus Relief ER] 600 MG tablet extended release 12hr 400 mg PO 0400,1000,1600 RF: 0 cetirizine [Zyrtec] 10 mg Tablet 20 mg PO 1000 RF: 0 acetaminophen 500 mg Tablet 1,000 mg PO 1000,1600,2200 RF: 0 amlodipine 10 mg tablet 10 mg PO 1800 RF: 0 hydroxychloroquine 200 mg tablet 200 mg PO 1000,2200 RF: 0 fluticasone propionate [Flonase Allergy Relief] 50 mcg/actuation [place],Suspension 4 spray INTRANASAL 0800 RF: 0 famotidine [Pepcid] 20 mg Tablet 20 mg PO 0400,1600 RF: 0 Referrals / Follow Up: Bradly Gutierres MD [Primary Care Provider] - Disposition Disposition (needs filled in before D/C Order can be placed): Home, self care Visit Charges Inpatient E&M: 22896 Disch Hosp
--- NOTE | 2020-11-03 13:39 | NURSING ---
nicotine patch removed per pt request on DC.
--- NOTE | 2020-11-03 13:40 | PHA.DC.MR ---
Pharmacy Service has performed discharge medication reconciliation for this patient. The patient's discharge medication list was reviewed for discrepancies and discrepancies were resolved. Home Medications aspirin 325 mg PO 0400 09/18/17 guaifenesin [Mucus Relief ER] 400 mg PO 0400,1000,1600 09/18/17 lisinopril 40 mg PO 1000 09/18/17 lorazepam 1 mg PO 0400,1000,1600,2200 09/18/17 metformin 750 mg PO 2200 09/18/17 omeprazole 40 mg PO 0400 09/18/17 prednisone 5 mg PO 0800 09/18/17 acetaminophen 1,000 mg PO 1000,1600,2200 11/01/20 amlodipine 10 mg PO 1800 11/01/20 cetirizine [Zyrtec] 20 mg PO 1000 11/01/20 famotidine [Pepcid] 20 mg PO 0400,1600 11/01/20 fluticasone propionate [Flonase Allergy Relief] 4 spray INTRANASAL 0800 11/01/20 hydroxychloroquine 200 mg PO 1000,2200 11/01/20 food supplemt, lactose-reduced [Ensure] 240 ml PO BID #3792 ml 11/03/20
== END 2020-11-03 13:33 | disposition home or self-care (01) | DRG 641 ==
PROVIDERS: Internal Medicine; Physician Assistant; Admitting Provider Student in an Organized Health Care Education/Training Program; PCP Family Medicine; Visit Provider Internal Medicine
DX: E87.1 Hypo-osmolality and hyponatremia (principal); E11.9 Type 2 diabetes mellitus without complications; I10 Essential (primary) hypertension; M06.9 Rheumatoid arthritis, unspecified; M79.7 Fibromyalgia; M81.0 Age-related osteoporosis without current pathological fracture; R10.9 Unspecified abdominal pain; G89.29 Other chronic pain; F41.9 Anxiety disorder, unspecified; F17.200 Nicotine dependence, unspecified, uncomplicated; Z79.84 Long term (current) use of oral hypoglycemic drugs; Z79.82 Long term (current) use of aspirin; Z79.899 Other long term (current) drug therapy
CPT/HCPCS: 36415; 80048; 83930; 83935; 84300; 84443; 85025; 85027; J7030; A4216; J2597

== ENCOUNTER 2020-11-10 17:50 | Emergency (ER) | payer MEDICARE, SELFPAY ==
[2020-11-10 17:51] VITALS: BP 172/85; PULSE 105; RESP 17; TEMP 36.8; O2SAT 98; BMI 24.6
--- NOTE | 2020-11-10 18:21 | EKG12_ITS ---
Test Reason : DYSRHYTHMIA Blood Pressure : / mmHG Vent. Rate : 085 BPM Atrial Rate : 085 BPM P-R Int : 164 ms QRS Dur : 106 ms QT Int : 368 ms P-R-T Axes : 059 049 092 degrees QTc Int : 437 ms Normal sinus rhythm Nonspecific ST and T wave abnormality Abnormal ECG Confirmed by DREW AGUILA, CHANELLE ([id number]), scientific editor MARIA L DOMINIUQE ([id number]) on 11/11/2020 11:31:42 AM Referred By: CORDELL Confirmed By:CHANELLE RUSSELL MD
--- NOTE | 2020-11-10 18:23 | CT_ITS ---
STUDY: CT CERVICAL SPINE WITHOUT CONTRAST REASON FOR EXAM: Female, 65 years old. Neck pain RADIATION DOSAGE (If Supplied By Facility): CTDIvol = ( 19.44 ) mGy, DLP = ( 418.72 ) mGycm TECHNIQUE: High resolution transaxial imaging was performed without contrast material. Sagittal and coronal images were reconstructed. Individualized dose optimization techniques were used for this CT. COMPARISON: None FINDINGS: Normal craniovertebral junction. Normal anterior atlantoaxial articulation. Normal odontoid process. There is straightening of the normal cervical lordosis. Normal vertebral bodies and posterior osseous elements. C2-3: Normal endplates. Normal disc height and morphology. Normal central canal and intervertebral neuroforamina. C3-4: Uncovertebral arthrosis. Facet joint osteoarthritis and hypertrophy on the left side. There is a moderate degree of left neural foraminal stenosis. C4-5: Moderate degree of disc space narrowing. Uncovertebral arthrosis. Mild degree of bilateral neural foraminal stenosis. C5-6: Marked degree of disc space narrowing. Spondylosis. Uncovertebral arthrosis slightly worse on the right side causing moderate right neural foraminal stenosis. C6-7: Marked degree of disc space narrowing. Spondylosis. Uncovertebral arthrosis and moderate degree of right neural foraminal stenosis. C7-T1: Normal endplates. Normal disc height and morphology. Normal central canal and intervertebral neuroforamina. Normal visualized soft tissue structures. CT/Spine Cervical without Contras IMPRESSION: Multilevel degenerative changes, as described above. Electronically Signed: Nicola He MD at 8:16 EDT , Service support ,
--- NOTE | 2020-11-10 18:24 | EX.ED.DYSGE1 ---
HPI History of Present Illness Chief Complaint: Other, Pain/Inj Detail of Chief Complaint: Head and neck pain and paresthesias Informant: patient Onset/Context/Timing Timing: Continuous Narrative Narrative: Patient presents to the emergency department with complaint of back and shoulder pain that she has had for years. Patient states that she wakes up every morning and has numbness and tingling in both arms and legs. Today her symptoms are small go away. Patient states that in the past when she has used topical BenGay on her upper back that the legs would stop again. Today the has not resolved her pain. Patient also states that about a month ago she was admitted to the hospital for hyponatremia that she was concerned that maybe her sodium is low again. She is having a significant headache all day today. Patient denies any fever or recent illness. Prior similar symptoms: Yes PFSH PFSH Medical History Anxiety Diabetes Fibromyalgia Hypertension Osteoporosis Rheumatoid arthritis Smoker Home Medications aspirin 325 mg PO 0400 09/18/17 [History Last Taken 11/01/20 04:00] guaifenesin [Mucus Relief ER] 400 mg PO 0400,1000,1600 09/18/17 [History Last Taken Unknown] lisinopril 40 mg PO 1000 09/18/17 [History Last Taken 11/01/20 10:00] lorazepam 1 mg PO 0400,1000,1600,2200 09/18/17 [History Last Taken 11/01/20 10:00] metformin 750 mg PO 2200 09/18/17 [History Last Taken 10/31/20 22:00] omeprazole 40 mg PO 0400 09/18/17 [History Last Taken 11/01/20 04:00] prednisone 5 mg PO 0800 09/18/17 [History Last Taken 11/01/20 08:00] acetaminophen 1,000 mg PO 1000,1600,2200 11/01/20 [History Last Taken 11/01/20 10:00] amlodipine 10 mg PO 1800 11/01/20 [History Last Taken Unknown] cetirizine [Zyrtec] 20 mg PO 1000 11/01/20 [History Last Taken Unknown] famotidine [Pepcid] 20 mg PO 0400,1600 11/01/20 [History Last Taken Unknown] fluticasone propionate [Flonase Allergy Relief] 4 spray INTRANASAL 0800 11/01/20 [History Last Taken 11/01/20 08:00] hydroxychloroquine 200 mg PO 1000,2200 11/01/20 [History Last Taken Unknown] food supplemt, lactose-reduced [Ensure] 240 ml PO BID #3792 ml 11/03/20 [Rx Last Taken Unknown] cyclobenzaprine 10 mg PO TID PRN #20 tablet 11/10/20 [Rx Last Taken Unknown] Allergy/AdvReac Type Severity Reaction Status Date / Time banana Allergy Angioedema Verified 11/10/20 17:53 sulfamethoxazole Allergy Hives Verified 11/10/20 17:53 [From Bactrim] trimethoprim [From Bactrim] Allergy Hives Verified 11/10/20 17:53 perfume AdvReac Shortness Verified 11/10/20 17:53 of breath FRUIT AdvReac Upset Uncoded 11/10/20 17:53 Stomach Social History Smoking Status: Current every day smoker tobacco type: cigarettes ROS ROS ED Constitutional Constitutional ED: Reports systems reviewed and no addt'l complaints, except as documented; Denies body ache(s), change in weight or chills Eyes Eyes: Denies acute decrease in peripheral vision, change in vision, double vision or loss of vision ENT ENT ED: Reports none and other Details: Neck pain ; Denies ear pain, lip swelling, loss taste/smell, neck pain, otalgia or sore throat Cardiovascular Cardiovascular: Reports none; Denies abdominal pain, chest pain with activity, leg edema, lightheadedness, palpitations, rapid heart rate or syncope Respiratory/Chest Respiratory/Chest: Reports none; Denies change in mental status, dry cough, dyspnea, hemoptysis, shortness of breath at rest or shortness of breath with exertion Gastrointestinal Gastrointestinal: Reports none; Denies abdominal pain, change in stool character, diarrhea, hematemesis, hematochezia, melena, rectal bleeding or vomiting Genitourinary Genitourinary ED: Reports none; Denies abdominal discomfort, anuria, dysuria, genital pain or polyuria Musculoskeletal Musculoskeletal: Reports none; Denies arthralgias, back pain, difficulty walking, extremity pain, muscle weakness or myalgias Integumentary Reports none; Denies abscess or rash Neurologic Neurologic: Reports none, headache(s) and paresthesias; Denies abnormal gait, confusion, focal weakness, frequent falls, loss of vision, numbness, radicular pain, vertigo or weakness Psychiatric Psychiatric: Reports systems reviewed and no addt'l complaints, except as documented and none; Denies behavioral changes, confusion, difficulty concentrating, hallucinations, suicidal ideation, tactile hallucinations or visual hallucinations Endocrine Endocrinology: Denies none, cold intolerance, excessive sweating, fatigue or heat intolerance Hematologic/Lymphatic Hematologic/Lymphatic: Reports none; Denies anemia, easy bleeding or easy bruising Allergic/Immunologic Allergic/Immunologic ED: Denies as per HPI, none, lip swelling, mouth swelling, throat swelling, tongue swelling or hives EXAM Physical Exam Const Vital Signs: 11/10/20 17:51 11/10/20 17:59 Temperature 98.3 F Temperature Source Temporal Pulse Rate 105 H Respiratory Rate 17 Respiratory Effort Normal Respiratory Pattern Normal Blood Pressure 172/85 H Blood Pressure Mean 114 Pulse Ox 98 Oxygen Delivery Method Room Air Positive well nourished and well developed General Appearance ED: well developed and NAD HEENT Reports TM's clear and moist mucous membranes normocephalic and atraumatic; Negative for trauma or tenderness Tympanic Membrane ED: Yes TM's clear Eyes PERRL and EOMs intact bilaterally General Eye ED: Negative for pale conjunctiva or scleral icterus Neck no lymphadenopathy, supple and no JVD General: Negative for tenderness Chest Wall inspection of chest normal and palpation of chest normal Chest: Negative for tenderness Resp normal respiratory effort and clear to auscultation bilaterally Effort and Inspection: Negative for respiratory distress or pain with movement Auscultation: Negative for rhonchi, wheezes or diminished lung sounds Cardio regular rate, regular rhythm, S1 normal heart sound, S2 normal heart sound and no murmurs Peripheral Pulses: pulses 2+ throughout GI normal to inspection, nondistended, normoactive bowel sounds, soft to palpation, non-tender, non-distended and no masses Back/Spine no CVA tenderness and no thoracic nor lumbar tenderness Extremity normal to inspection General Extremety ED: Negative for edema General Extremity: Negative for edema Neuro oriented x3, CN's II-XII intact bilaterally, no sensory deficits noted and gait normal Sensorium / Orientation: awake, alert, oriented to person, oriented to place and oriented to time Motor Exam: strength 5/5 throughout and strength abnormal Psych mental status grossly normal Skin no rashes or lesions noted and no wounds MDM MDM MDM Narrative Medical decision making narrative: PARAS wet read by Dr. Stefano He noted that her brain CT was unremarkable. CT of the C-spine showed degenerative disc disease from C4-C7. At this point patient has acute exacerbation of chronic symptoms and recommended that she follow-up with her primary care physician as she may need further imaging such as MRI as an outpatient. I do not feel there is any surgical emergency or red flag symptoms at this point to warrant emergent MRI. Patient in agreement. Lab Data Attestation: I reviewed the patient's lab results. Labs: Laboratory Results - last 24 hr 11/10/20 11/10/20 18:42 18:42 WBC 7.6 RBC 4.10 L Hgb 11.3 L Hct 35.5 L MCV 86.6 MCH 27.6 MCHC 31.8 L RDW Std Deviation 41.1 RDW Coeff of Keron 13.0 Plt Count 334 MPV 8.3 Immature Gran % (Auto) 0.300 Neut % (Auto) 67.9 Lymph % (Auto) 21.2 [place] % (Auto) 8.5 Eos % (Auto) 1.3 Baso % (Auto) 0.8 Absolute Neuts (auto) 5.2 Absolute Lymphs (auto) 1.62 Nucleated RBC % 0 Sodium 136 Potassium 4.8 Chloride 104 Carbon Dioxide 25.0 Anion Gap 7 BUN 26 H Creatinine 1.32 H Estim Creat Clear Calc 42.29 Est GFR (MDRD) Af Amer 52 L Est GFR (MDRD) Non-Af 43 L BUN/Creatinine Ratio 19.7 Glucose 112 H Calcium 9.3 EKG Initial EKG: Comments: Sinus rhythm with a ventricular rate of 85 bpm with some nonspecific ST changes noted Prior EKG tracings: available for review Prior: Unchanged Discharge Plan Triage Chief Complaint: Other, Pain/Inj ED Provider: Dewayne Nielsen Dx/Rx/DC Orders Clinical Impression: Acute neck pain, Paresthesias Prescriptions: New cyclobenzaprine [cyclobenzaprine] 10 MG tablet 10 mg PO TID PRN (Reason: Muscle Spasm) Qty: 20 RF: 0 No Action metformin 500 MG tablet 750 mg PO 2200 RF: 0 prednisone 5 MG tablet 5 mg PO 0800 RF: 0 aspirin 325 MG tablet,delayed release (DR/EC) 325 mg PO 0400 RF: 0 omeprazole 20 MG capsule 40 mg PO 0400 RF: 0 lorazepam 1 MG tablet 1 mg PO 0400,1000,1600,2200 RF: 0 lisinopril 40 MG tablet 40 mg PO 1000 RF: 0 guaifenesin [Mucus Relief ER] 600 MG tablet extended release 12hr 400 mg PO 0400,1000,1600 RF: 0 cetirizine [Zyrtec] 10 mg Tablet 20 mg PO 1000 RF: 0 acetaminophen 500 mg Tablet 1,000 mg PO 1000,1600,2200 RF: 0 amlodipine 10 mg tablet 10 mg PO 1800 RF: 0 hydroxychloroquine 200 mg tablet 200 mg PO 1000,2200 RF: 0 fluticasone propionate [Flonase Allergy Relief] 50 mcg/actuation [place],Suspension 4 spray INTRANASAL 0800 RF: 0 famotidine [Pepcid] 20 mg Tablet 20 mg PO 0400,1600 RF: 0 Ensure Liquid 240 ml PO BID Qty: 3792 RF: 0 Primary Care Provider: Bradly Gutierres Referrals: Bradly Gutierres MD [Primary Care Provider] - Disposition Disposition: Home, self care
[2020-11-10 18:51] LABS: Absolute Lymphocyte Count 1.62 X10^3/uL (0.83-4.51); Absolute Neutrophil Count 5.2 X10^3/uL (2.0-7.7); Basophil# 0.06 X10^3/uL; Basophil% 0.8 % (0-1); Eosinophils% 1.3 % (0-5); Hematocrit 35.5 % (37-47); Hemoglobin 11.3 g/dL (12.0-15.0); Lymphocyte # 1.62 X10^3/ul (0.83-4.51); Lymphocyte % 21.2 % (19-41); Mean Corp Hgb Conc 31.8 g/dL (32-36); Mean Corpuscular Hgb 27.6 pg (27.0-32.0); Mean Corpuscular Volume 86.6 fL (81-99); Mean Platelet Vol. 8.3 fl (6.2-12.0); Monocyte# 0.65 X10^3/uL; Monocyte% 8.5 % (0-10); NRBC Flagged by Analyzer 0 % (0-5); Neutrophil # 5.19 X10^3/uL (2.7-7.7); Neutrophil % 67.9 % (47-70); Platelet Count 334 K/mm3 (150-450); RBC Distribution Width SD 41.1 fl (35.1-43.9); White Blood Count 7.6 K/mm3 (4.4-11.0)
--- NOTE | 2020-11-10 18:55 | CT_ITS ---
STUDY: CT BRAIN WITHOUT CONTRAST REASON FOR EXAM: Female, 65 years old. Headache, paraesthesias RADIATION DOSAGE (If Supplied By Facility): CTDIvol = ( 44.99 ) mGy, DLP = ( 796.11 ) mGycm TECHNIQUE: Transaxial CT imaging of the brain was performed without administration of intravenous contrast material. Individualized dose optimization techniques were used for this CT. COMPARISON: Comparison is made with prior study dated 07/12/2016. FINDINGS: Normal soft tissue structures. Normal calvarium. There is mild cerebral atrophy with widening of the extra-axial spaces and ventricular dilatation. Normal white matter tracts of the cerebral hemispheres. Normal basal ganglia and thalami. Normal brainstem. Normal cerebellum. There is no intracranial hemorrhage. There are no findings of an acute ischemic infarction. Normal visualized paranasal sinuses. CT/Brain/Head without Contrast IMPRESSION: Chronic involutional changes of the brain. Electronically Signed: Nicola He MD at 8:14 EDT , Service support ,
[2020-11-10 19:12] LABS: Anion Gap 7 (5-15); BUN 26 mg/dL (7-18); BUN/Creat Ratio 19.7 RATIO (10-20); Calcium,Total 9.3 mg/dL (8.5-10.1); Chloride 104 mmol/L (98-107); Creatinine, Serum 1.32 mg/dL (0.55-1.02); EST Glomerular Filtration Rate 43 mL/min (>60); Est Glom Filt Rate - Afr Amer 52 mL/min (>60); Estimated Creatinine Clearance 42.29 ml/min; Glucose 112 mg/dL (74-106); Potassium 4.8 mmol/L (3.5-5.1); Sodium Level 136 mmol/L (136-145)
[2020-11-10 20:45] VITALS: BP 173/79; PULSE 96; RESP 18; O2SAT 99
== END 2020-11-10 20:46 | disposition home or self-care (01) ==
PROVIDERS: Emergency Provider Emergency Medicine; PCP Family Medicine
DX: M50.320 Other cervical disc degeneration, mid-cervical region, unspecified level (principal); R51.9 Headache, unspecified; R20.2 Paresthesia of skin; E11.9 Type 2 diabetes mellitus without complications; I10 Essential (primary) hypertension; M06.9 Rheumatoid arthritis, unspecified; M79.7 Fibromyalgia; M81.0 Age-related osteoporosis without current pathological fracture; F41.9 Anxiety disorder, unspecified; Z79.52 Long term (current) use of systemic steroids; Z79.82 Long term (current) use of aspirin; Z79.84 Long term (current) use of oral hypoglycemic drugs; F17.210 Nicotine dependence, cigarettes, uncomplicated
CPT/HCPCS: 70450; 72125; 80048; 85025; 93005; 99283; A4216

== ENCOUNTER → 2023-01-29 | Outpatient (CLI) | payer MEDICARE, SELFPAY ==
--- NOTE | 2023-01-29 | CYSPIN_PTH ---
PATIENT: RUSTY SIBLEY LOC: [facility] U#:[id number] AGE/SX: 67/F ROOM: RE01/29/[address]: Dr. Zahida Rios MD : 1955 BED: DIS: 01/29/2023 SPEC #: [id number] RECD: 01/30/23 07:15 STATUS: JOSEFA EN #: [id number] FAUSTO: 01/29/23 00:[address]: Zahida Rios DEPT: CYTOLOGY RECD BY: Savannah Duong ENTERED: 01/30/23 07:15 SP TYPE: CYSPIN FL OTHR DR: Dr. Khadar Vasquez, DO Tissues: Urine Procedures: Pap Stain (control) Special Stain Group II Cytospin Fluid HEADER OPERATION: Not noted PRE-OP DIAGNOSIS: Gross hematuria TISSUE SUBMITTED: Urine for cytology DIAGNOSIS CYTOLOGY Urine for cytology (cytospin): Consistent with low-grade urothelial neoplasm (LGUN), Pooanm System Category 6. See comment. AM:chad 01/30/2023 COMMENT The Poonam System for urine cytology diagnostic categorization was used in the evaluation of this case. CYTOLOGY STUDY Slides are reviewed. CYTOLOGY GROSS Received is 7.5 ml of yellow/gold cloudy fluid labeled with the patient's name and and designated per the requisition as urine. Submitted for cytology preparation. / chad 01/30/2023 TC:0 CPT: 82979
[2023-01-29 16:22] LABS: Anion Gap 6 (5-15); BUN 30 mg/dL (7-18); BUN/Creat Ratio 19.7 RATIO (10-20); Chloride 107 mmol/L (98-107); Creatinine, Serum 1.52 mg/dL (0.55-1.02); EST Glomerular Filtration Rate 36 mL/min (>60); Est Glom Filt Rate - Afr Amer 44 mL/min (>60); Glucose 127 mg/dL (74-106); Potassium 4.3 mmol/L (3.5-5.1); Sodium Level 138 mmol/L (136-145)
[2023-01-29 17:31] LABS: Cytology, Body Fluid / CSF SEE PATHOLOGY REPORT
== END | disposition home or self-care (01) ==
PROVIDERS: PCP Student in an Organized Health Care Education/Training Program; Referring Provider Urology; Visit Provider Urology
DX: R31.0 Gross hematuria (principal); N93.9 Abnormal uterine and vaginal bleeding, unspecified
CPT/HCPCS: 36415; 80048; 88108; 88313

== ENCOUNTER → 2023-02-02 | Outpatient (CLI) | payer MEDICARE, SELFPAY ==
--- NOTE | 2023-02-02 15:58 | US_ITS ---
INDICATION: ABN UTERINE BLEEDING, KIDNEY STONES, HEMATURIA EXAMINATION: Ultrasound US Pelvis Non-OB Complete TECHNIQUE: Transabdominal and transvaginal pelvic ultrasound was performed. Grayscale, spectral waveform, and color flow Doppler evaluation of the adnexa. COMPARISON: No relevant prior comparison study available FINDINGS: UTERUS: Anteverted. The uterus measures 7.5 x 4.2 x 3.6 cm. There is no uterine mass. The endometrial stripe measures 4.1 mm in AP diameter which is within normal limits. The ovaries are not visualized due to bowel gas. FREE FLUID: None. Bladder volume measures 13.7 cc during the study. US/Pelvic (Non ) IMPRESSION: Unremarkable pelvic ultrasound. Electronically Signed: Tra Loyola MD at 8:18 EDT ,
== END | disposition home or self-care (01) ==
LOC: US 15:58
PROVIDERS: PCP Student in an Organized Health Care Education/Training Program; Referring Provider Urology; Visit Provider Urology
DX: N93.9 Abnormal uterine and vaginal bleeding, unspecified (principal); N20.0 Calculus of kidney; R31.0 Gross hematuria
CPT/HCPCS: 76856

== ENCOUNTER → 2023-02-14 | Outpatient (CLI) | payer MEDICARE, SELFPAY ==
--- NOTE | 2023-02-14 13:54 | CT_ITS ---
INDICATION: Abnormal uterine bleeding, gross hematuria, kidney stones. Diabetic, 3rd stage kidney failure. EXAMINATION: CT ABDOMEN AND PELVIS WITHOUT CONTRAST - CT Abdomen And Pelvis W/O Contrast Injection TECHNIQUE: Helically acquired images were obtained of the abdomen and pelvis without oral or IV contrast. A radiation dose optimization technique was used for this scan. IV Contrast dosage and agent: None. Oral contrast: None. RADIATION DOSAGE (If Supplied By Facility): CTDIvol = ( 11.79 ) mGy, DLP = ( 533.58 ) mGycm COMPARISON: Non-. FINDINGS: LOWER CHEST: Lung bases are clear. Normal cardiac size with coronary artery calcifications. LIVER: Homogeneous. No focal mass. GALLBLADDER AND BILIARY TREE: Multiple tiny gallstones. No gallbladder distension or wall edema. No intra- or extrahepatic biliary ductal dilation. PANCREAS: No focal cystic or solid mass. SPLEEN: Normal size without focal cystic or solid mass. ADRENAL GLANDS: No nodules. KIDNEYS AND URETERS: Right-sided marginal atrophy. The right upper no pole stone measuring 5 mm. Vascular calcifications the right renal sinus. Left lower renal pole stone measuring 6.5 mm. Additional stones in the upper pole, likely stones the largest measuring 4.5 mm. Vascular calcifications in the left renal sinus. Remainder of the left kidney unremarkable. No hydronephrosis. PERITONEUM: No ascites or free air. No other fluid collection. BOWEL: No evidence of acute appendicitis. No stomach distention. Few loops of small bowel distended up to 2.7 cm emboli thickening of the wall in the left abdomen, cannot exclude mild enteritis. No significant dilatation to suggest obstruction. No focal inflammatory change. LYMPH NODES: No enlarged mesenteric or retroperitoneal lymph nodes. VESSELS: Atherosclerosis of aorta with no aneurysm. Mild ectasia of the distal aorta measuring up to 2. A centimeter. URINARY BLADDER: Bladder is decompressed. REPRODUCTIVE ORGANS: No pelvic masses. ABDOMINAL WALL: Tiny fat-containing umbilical hernia. BONES: Effusions osteopenia with multilevel degenerative disease of the spine, bilateral SI joints and hips. CT/Abdomen/Pelvis without Cont IMPRESSION: Bilateral nonobstructive intrarenal stones. Multiple tiny gallstones, remainder of abdominal viscera are unremarkable. No acute appendicitis or bowel obstruction. Cannot exclude mild enteritis. Electronically Signed: Abbey Ward MD at 19:37 EDT ,
== END | disposition home or self-care (01) ==
LOC: CT 13:53
PROVIDERS: PCP Student in an Organized Health Care Education/Training Program; Referring Provider Urology; Visit Provider Urology
DX: N93.9 Abnormal uterine and vaginal bleeding, unspecified (principal); N20.0 Calculus of kidney; R31.0 Gross hematuria
CPT/HCPCS: 74176

== ENCOUNTER 2023-04-25 09:11 | Day surgery (SDC) | payer MEDICARE, SELFPAY ==
--- NOTE | 2023-04-17 10:28 | EKG12_ITS ---
Test Reason : PRE-OP Blood Pressure : / mmHG Vent. Rate : 069 BPM Atrial Rate : 069 BPM P-R Int : 156 ms QRS Dur : 106 ms QT Int : 406 ms P-R-T Axes : 056 053 114 degrees QTc Int : 435 ms Normal sinus rhythm ST & T wave abnormality, consider lateral ischemia Abnormal ECG Confirmed by YARI AGUILA, NILA ([id number]), communications editor TJ ASHLEY ([id number]) on 04/17/2023 2:00:48 PM Referred By: Azeem Fernández Confirmed By:NILA GREENBERG MD
[2023-04-17 11:34] LABS: Hematocrit 39.6 % (37-47); Hemoglobin 12.3 g/dL (12.0-15.0); Mean Corp Hgb Conc 31.1 g/dL (32-36); Mean Corpuscular Hgb 28.8 pg (27.0-32.0); Mean Corpuscular Volume 92.7 fL (81-99); Mean Platelet Vol. 9.8 fl (6.2-12.0); Platelet Count 239 K/mm3 (150-450); RBC Distribution Width CV 12.5 % (11.6-14.6); RBC Distribution Width SD 42.6 fl (35.1-43.9); Red Blood Count 4.27 M/mm3 (4.2-5.4); White Blood Count 7.6 K/mm3 (4.4-11.0)
[2023-04-17 11:52] LABS: International Normalized Ratio 0.9; Partial Thromboplast Time 22.7 Seconds (24.1-36.2); Prothrombin Time (Protime)PT. 12.3 SECONDS (11.7-14.9)
[2023-04-17 12:04] LABS: Anion Gap 4 (5-15); BUN 25 mg/dL (7-18); BUN/Creat Ratio 18.5 RATIO (10-20); Calcium,Total 9.2 mg/dL (8.5-10.1); Chloride 106 mmol/L (98-107); Creatinine, Serum 1.35 mg/dL (0.55-1.02); EST Glomerular Filtration Rate 41 mL/min (>60); Est Glom Filt Rate - Afr Amer 50 mL/min (>60); Glucose 130 mg/dL (74-106); Potassium 3.6 mmol/L (3.5-5.1); Sodium Level 137 mmol/L (136-145)
[2023-04-17 12:08] LABS: Hemoglobin A1c 6.5 % (3.8-5.6)
[2023-04-25] VITALS (7 sets, daily range): BP systolic 102–140; BP diastolic 57–91; PULSE 73–82; RESP 16; TEMP 36.6–36.9; O2SAT 95–100; BMI 23.4
[2023-04-25] MEDS: Lactated Ringers 1,000 ML 15 ML IV (09:52)
--- NOTE | 2023-04-25 10:53 | HP.PCM_ITS ---
[facility] - General General Date of Service: 04/25/23 Chief Complaint: Bladder cancer HPI Narrative RUSTY SIBLEY, is a 67 F who presents transurethral section of a bladder tumor which appears to be cancerous and and mitomycin C instillation [facility] Medical History (Updated 04/06/23 @ 11:02 by Carlene Short) Anemia Anxiety Arthritis Back pain Cardiology follow-up encounter Diabetes Fibromyalgia Gastric reflux High cholesterol History of echocardiogram History of edema History of hiatal hernia History of renal disease History of steroid therapy Hypertension Osteoporosis Post-menopausal Rheumatoid arthritis Shortness of breath on exertion Smoker Wears dentures Home Medications guaifenesin 600 mg tablet, extended release 12 hr (Mucus Relief ER) 400 mg PO 0400,1000,1600 cough 09/18/17 [History Last Taken Unknown] lorazepam 1 mg tablet 0.25 mg PO DAILY anxiety 09/18/17 [History Last Taken 11/01/20 10:00] metformin 500 mg tablet 500 mg PO DAILY diabetes 09/18/17 [History Last Taken 10/31/20 22:00] omeprazole 20 mg capsule,delayed release 40 mg PO 0400 reflux 09/18/17 [History Last Taken 04/25/23] prednisone 5 mg tablet 5 mg PO 0800 arthritis 09/18/17 [History Last Taken 04/25/23] acetaminophen 500 mg tablet 1,000 mg PO 1000,1600,2200 pain 11/01/20 [History Last Taken 11/01/20 10:00] amlodipine 10 mg tablet 10 mg PO 1600 blood pressure 11/01/20 [History Last Taken Unknown] cetirizine 10 mg tablet (Zyrtec) 10 mg PO 1000 allergies 11/01/20 [History Last Taken Unknown] famotidine 20 mg tablet (Pepcid) 20 mg PO 1600 reflux 11/01/20 [History Last Taken Unknown] fluticasone propionate 50 mcg/actuation nasal spray,suspension (Flonase Allergy Relief) 2 spray intranasal 0800 allergies 11/01/20 [History Last Taken 11/01/20 08:00] hydroxychloroquine 200 mg tablet 200 mg PO BID arthritis 11/01/20 [History Last Taken Unknown] albuterol sulfate 90 mcg/actuation aerosol inhaler 1 puff inhalation Q4H PRN shortness of breath or wheezing 04/06/23 [History Last Taken Unknown] amoxicillin 500 mg capsule 500 mg PO BID 04/06/23 [History Last Taken Unknown] aspirin 81 mg capsule 81 mg PO DAILY 04/06/23 [History Last Taken Unknown] atorvastatin 20 mg tablet 40 mg PO DAILY 04/06/23 [History Last Taken Unknown] azelastine 137 mcg (0.1 %) nasal spray aerosol 2 spray intranasal BID 04/06/23 [History Last Taken Unknown] benzonatate 100 mg capsule 100 mg PO Q6H PRN cough 04/06/23 [History Last Taken Unknown] calcium carb-ergocalciferol (vit D2) 600 mg calcium-200 unit tablet 1 tab PO DAILY 04/06/23 [History Last Taken Unknown] cholecalciferol (vitamin D3) 125 mcg (5,000 unit) capsule 125 mcg PO DAILY 04/06/23 [History Last Taken Unknown] ferrous sulfate 325 mg (65 mg iron) tablet (FeroSul) 325 mg PO DAILY 04/06/23 [History Last Taken Unknown] hydrochlorothiazide 12.5 mg tablet 12.5 mg PO DAILY 04/06/23 [History Last Taken Unknown] methylprednisolone 4 mg tablets in a dose pack (Methylpred DP) 4 mg PO DAILY 04/06/23 [History Last Taken Unknown] metoprolol succinate 25 mg tablet,extended release 24 hr 50 mg PO DAILY 04/06/23 [History Last Taken 04/25/23] patiromer calcium sorbitex 8.4 gram oral powder packet (Veltassa) 8.4 g PO QODAY 04/06/23 [History Last Taken Unknown] sacubitril 24 mg-valsartan 26 mg tablet (Entresto) 1 tab PO BID 04/06/23 [ History Last Taken 04/25/23] Allergy/AdvReac Type Severity Reaction Status Date / Time orange Allergy Severe Anaphylaxis Verified 04/25/23 09:44 strawberry Allergy Severe Anaphylaxis Verified 04/25/23 09:44 banana Allergy Angioedema Verified 04/25/23 09:44 sulfamethoxazole Allergy Hives Verified 04/25/23 09:44 [From Bactrim] trimethoprim [From Bactrim] Allergy Hives Verified 04/25/23 09:44 perfume AdvReac Shortness Verified 04/25/23 09:44 of breath Surgical History (Updated 04/06/23 @ 11:02 by Carlene Short) Hx of cardiac cath Hx of tonsillectomy Hx of tubal ligation Social History Smoking Status: Current every day smoker tobacco type: cigarettes Vital Signs Vital Signs Vital Signs: 04/25/23 09:47 04/25/23 09:47 Temperature 97.9 F Temperature Source Temporal Pulse Rate 73 Respiratory Rate 16 Respiratory Pattern Normal Blood Pressure 115/58 L Blood Pressure Mean 77 Blood Pressure Source Monitor Blood Pressure Position Semi-Fowlers Blood Pressure Location Right Arm Pulse Ox 100 Oxygen Delivery Method Room Air Weight Weight: 68 kg Body Mass Index (BMI) 23.4 Results Lab / Micro Data 04/17/23 11:00 04/17/23 11:00
--- NOTE | 2023-04-25 10:54 | PCM.DC ---
Discharge Instructions Diet Discharge Diet: No restrictions Activity Discharge Activity: Return to Normal Activity and May Not Drive (while taking narcotic pain medications.) Dressing / Incision Call your doctor if you observe: Fever of 101 or Higher Follow Up Care Please Follow Up With: Azeem Fernández MD When: Call [phone] for an appointment Test Results: Test results from this visit will be discussed in further detail at your follow-up appointment, if applicable. Discharge Plan Admission Attending Provider: Azeem Fernández Primary Care Provider: Khadar Vasquez Consulting Providers: Parag Rivera Discharge Orders/Prescriptions Prescriptions: No Action metformin 500 MG tablet 500 mg PO DAILY Patient Comments: 10pm prednisone 5 MG tablet 5 mg PO 0800 Patient Comments: pt takes at 0800 omeprazole 20 MG capsule 40 mg PO 0400 Patient Comments: 4am lorazepam 1 MG tablet 0.25 mg PO DAILY Patient Comments: 4am, 10am, 4pm, 10pm guaifenesin [Mucus Relief ER] 600 MG tablet extended release 12hr 400 mg PO 0400,1000,1600 Patient Comments: 4am,10am,4pm cetirizine [Zyrtec] 10 mg Tablet 10 mg PO 1000 Patient Comments: 10am acetaminophen 500 mg Tablet 1,000 mg PO 1000,1600,2200 Patient Comments: 10am,4pm,10pm amlodipine 10 mg tablet 10 mg PO 1600 Patient Comments: TAKE ONE TABLET BY MOUTH EVERY DAY hydroxychloroquine 200 mg tablet 200 mg PO BID Patient Comments: TAKE ONE TABLET BY MOUTH TWICE DAILY fluticasone propionate [Flonase Allergy Relief] 50 mcg/actuation [place],Suspension 2 spray INTRANASAL 0800 Patient Comments: 8am famotidine [Pepcid] 20 mg Tablet 20 mg PO 1600 Patient Comments: 4am,4pm amoxicillin 500 mg capsule 500 mg PO BID benzonatate 100 mg capsule 100 mg PO Q6H PRN (Reason: cough) methylprednisolone [Methylpred DP] 4 mg tablets,dose pack 4 mg PO DAILY albuterol sulfate 90 mcg/actuation HFA aerosol inhaler 1 puff INHALATION Q4H PRN (Reason: shortness of breath or wheezing) Patient Comments: Inhale 1 puff EVERY 4 HOURS NEEDED FOR WHEEZING atorvastatin 20 mg tablet 40 mg PO DAILY Patient Comments: TAKE ONE TABLET BY MOUTH EVERY DAY ferrous sulfate [FeroSul] 325 mg (65 mg iron) tablet 325 mg PO DAILY Patient Comments: TAKE ONE TABLET BY MOUTH EVERY DAY cholecalciferol (vitamin D3) 125 mcg (5,000 unit) capsule 125 mcg PO DAILY Patient Comments: TAKE ONE CAPSULE BY MOUTH EVERY DAY aspirin 81 mg capsule 81 mg PO DAILY Entresto 24-26 mg tablet 1 tab PO BID Patient Comments: TAKE ONE TABLET BY MOUTH TWICE DAILY metoprolol succinate 25 mg tablet extended release 24 hr 50 mg PO DAILY Patient Comments: TAKE ONE TABLET BY MOUTH EVERY DAY (Do not crush or chew) hydrochlorothiazide 12.5 mg tablet 12.5 mg PO DAILY Patient Comments: TAKE ONE TABLET BY MOUTH EVERY DAY calcium carbonate-vitamin D2 600 mg calcium- 200 unit tablet 1 tab PO DAILY azelastine 137 mcg (0.1 %) aerosol,spray 2 spray INTRANASAL BID Patient Comments: USE TWO SPRAYS IN EACH NOSTRIL TWICE DAILY NEEDED FOR ALLERGY SYMPTOMS Veltassa 8.4 gram powder in packet 8.4 g PO QODAY Referrals / Follow Up: Khadar Vasquez DO [Primary Care Provider] - Disposition Disposition (needs filled in before D/C Order can be placed): Home, Self Care
--- NOTE | 2023-04-25 11:20 | BLA_PTH ---
PATIENT: RUSTY SIBLEY LOC: [facility] [place] U#:[id number] AGE/SX: 67/F ROOM: RE04/25/[address]: Dr. Azeem Fernández MD : 1955 BED: DIS: 04/25/2023 SPEC #: [id number] RECD: 04/26/23 07:47 STATUS: JOSEFA REFredrick #: [id number] FAUSTO: 04/25/23 11:[address]: Azeem Fernández DEPT: SURGICAL PATHOLOGY RECD BY: Bebe Johansen ENTERED: 04/26/23 07:48 SP TYPE: BLADDER BX OTHR DR: MD Dr. Khadar Wells DO Tissues: A - Urinary bladder, NOS B - Urinary bladder, NOS Procedures: Surgery Specimen Level IV HEADER OPERATION: Transurethral resection, bladder tumor PRE-OP DIAGNOSIS: Bladder tumor TISSUE SUBMITTED: A. Bladder tumor, B. Deeper resection MICROSCOPIC DIAGNOSIS A. Bladder tumor, TUR: Invasive high grade papillary urothelial carcinoma. See cancer summary in the comment section. B. Deeper resection, TUR: Invasive high grade papillary urothelial carcinoma. See cancer summary in the comment section. SJ: 04/27/2023 COMMENT BLADDER CANCER (TUR) SUMMARY Procedure: Transurethral resection of bladder tumor (TURBT) Tumor site: not specified. Histologic type: Papillary urothelial carcinoma, invasive Associated epithelial lesions: None identified Histologic grade: high grade (3/3) Tumor configuration: Papillary and invasive Muscularis propria presence: muscularis propria (detrusor muscle) present and extensively involved by the tumor Lymph-vascular invasion: not identified. Tumor extension: Tumor invades the muscularis propria (both specimens A & B). Additional pathologic findings: chronic inflammation. PATHOLOGIC STAGE: pT2, pNx, pMx The above summary is in compliance with [employer] [employer] (CAP) Cancer Protocols Checklist and [place] [employer] Committee on Cancer (AJCC), Staging Manual, 8th Ed. A & B: Tumor in both specimens show similar morphologic changes. Focal perineural by the tumor is also noted. MICROSCOPIC DESCRIPTION Slides are reviewed. GROSS DESCRIPTION A. Received in fixative is one container labeled with the patient's name and designated bladder tumor. The specimen consists of multiple irregular fragments of pink-bass, soft tissue that measure in aggregate 2 x 1.5 x 0.3 cm. The specimen is totally submitted in one cassette. B. Received in fixative is one container labeled with the patient's name and designated deeper resection. The specimen consists of multiple irregular fragments of pink-bass, soft tissue with bass-brown stones that measure in aggregate 3 x 2.5 x 0.3 cm. The specimen is totally submitted in one cassette. /SJ:cc:cw 04/26/23 TC: 0 CPT: 51006 x2
[2023-04-25] MEDS: Cefazolin 2 GM in 0.9% Normal Saline (100mL Bag) 100 ML IV (11:22)
[2023-04-25 11:49] LABS: Bedside Glucose 103 mg/dL (74-106)
[2023-04-25] MEDS: MitoMYcin 40 MG in Syringe 1 EACH 2400 MG INSTILLAT (12:00)
--- NOTE | 2023-04-25 12:04 | OP.PCM_ITS ---
Report of Operation Date of Procedure: 04/25/23 Pre-Operative Diagnosis: Bladder tumor Post-Operative Diagnosis: Invasive looking bladder tumor Surgery/Procedure Performed:: Transurethral resection of bladder tumor large Description of Surgical Findings:: This is a 67-year-old female who was found to have a tumor in her bladder and today we will get a proceed with a transurethral resection of this bladder tumor instillation of Mitomycin-C. Patient was taken back to the operating room at a smooth induction of general anesthesia she was placed in dorsolithotomy position. Went of the bladder with a 21 [place] rigid cystourethroscope on inspection of her bladder she had a sessile looking flat aggressive looking tumor in the posterior aspect of the bladder it was away from the left and right ureteral orifice not near the trigone. I then started with the resection and I resected the superficial part of the bladder when I got to the area where it was about level with the bladder it appeared to be invasive so then I continued to resect deeper I had to resect deeper into the muscle and then actually there are some areas where I got as deepest got some fat posteriorly so I got a very deep resection through muscle all the way down to the fascia in a few areas I then cauterized the resection I sent off to specimen while 1 was the superficial tumor and the other 1 was a deep tumor deep into the bladder muscle again it did look very suspicious and concerning for an invasive type of bladder cancer I felt like it did a complete resection but what to see with the deep resection margins look like. We then cauterized to make sure there is no bleeding I then washed out the bladder with sterile water and then there was no bleeding and then put a 18 [place] catheter into the bladder we instilled Mitomycin-C into the bladder put a clamp on for 45 minutes with this will be removed after 45 minutes and then she will have to go home with a catheter for 10 days later bladder heal. Surgeon: Azeem Fernández Type of Anesthesia: General Drains: eason Estimated Blood Loss (mL): 5 Admit VTE Documentation VTE Present on Admission: No VTE Mechan Device Prophylaxis: SCD's VTE Pharm Prophylaxis ordered?: No
[2023-04-25] MEDS: Ketorolac 15 MG/ML Vial IV (12:59)
[2023-04-25 13:19] LABS: Bedside Glucose 110 mg/dL (74-106)
--- NOTE | 2023-04-25 13:42 | SUR.PHASEII ---
[facility] DISCHARGE INSTRUCTIONS ON CARING FOR SINGH, EMPTYING SINGH BAG AND CARING FOR LEG BAG PRINTED OUT AND REVIEWED WITH THE PATIENT. QUESTION ANSWERED.
== END 2023-04-25 14:04 | disposition home or self-care (01) ==
LOC: SDC 09:13 → AC 09:13
PROVIDERS: Anesthesiology; PCP Student in an Organized Health Care Education/Training Program; Referring Provider Urology; Visit Provider Urology
PROC: 0TBB8ZX Excision of Bladder, Via Natural or Artificial Opening Endoscopic, Diagnostic (ICD-10-PCS; CPT 52250; principal; 2023-04-25 11:10)
DX: C67.4 Malignant neoplasm of posterior wall of bladder (principal); M06.9 Rheumatoid arthritis, unspecified; E11.9 Type 2 diabetes mellitus without complications; Z79.52 Long term (current) use of systemic steroids; D64.9 Anemia, unspecified; F17.210 Nicotine dependence, cigarettes, uncomplicated; I10 Essential (primary) hypertension; M79.7 Fibromyalgia; E78.00 Pure hypercholesterolemia, unspecified; Z79.84 Long term (current) use of oral hypoglycemic drugs; Z79.82 Long term (current) use of aspirin; Z79.899 Other long term (current) drug therapy; E87.1 Hypo-osmolality and hyponatremia
CPT/HCPCS: 52235; 51720; 00912; 36415; 80048; 82962; 83036; 85027; 85610; 85730; 88305; 93005; J7120; J9280; J2405

== ENCOUNTER → 2023-05-17 | Outpatient (CLI) | payer MEDICARE, SELFPAY ==
--- NOTE | 2023-05-17 16:46 | CT_ITS ---
STUDY: CT CHEST, ABDOMEN T PELVIS WITH CONTRAST REASON FOR EXAM: Female, 67 years old. RESTAGING BLADDER CA RADIATION DOSAGE (If Supplied By Facility): CTDIvol = ( 17.19 ) mGy, DLP = ( 2070.19 ) mGycm TECHNIQUE: Transaxial imaging was performed following intravenous administration of Oral and amp; IV Gastrografin and amp; 100mL Isovue-370. Individualized dose optimization techniques were used for this CT. COMPARISON: February 14, 2023 FINDINGS: CHEST The lungs are normal. There is no demonstrated pleural abnormality. Normal heart and pericardium. There is multivessel coronary artery calcification Normal mediastinum. Normal hilar regions. Normal unenhanced pulmonary arteries. Atherosclerotic changes of the aorta without evidence for aneurysm Dorsal spine demonstrates degenerative change. No lytic or sclerotic bony lesions are observed. . ABDOMEN . Normal liver. Normal gallbladder and extrahepatic biliary system. Normal spleen. Normal pancreas. Normal bilateral adrenal glands. Diffusely atrophic right kidney. Tiny nonobstructing bilateral renal calculi.. No evidence for renal obstruction or mass Normal visualized stomach. Normal small intestine. Normal colon. No evidence for acute appendicitis Atherosclerotic changes of the aorta without evidence for focal aneurysm. Normal inferior vena cava. Normal retroperitoneum. PELVIS There is deformity of the right inferior wall of the bladder may be consistent with history of known neoplasm Normal visualized small intestine. Normal visualized colon. There is no pelvic fluid. There is no pelvic lymphadenopathy or mass lesion. Normal visualized pelvic arteries. Tiny fat umbilical hernia. Lumbar spine demonstrates degenerative change. No evidence for lytic or sclerotic bony lesions CT/CT Chest, Abd, Pel w/Contrast IMPRESSION: No acute abnormalities within the chest. No evidence for pulmonary metastasis hilar or mediastinal adenopathy Atrophic right kidney. Bilateral nonobstructing renal calculi Findings consistent with known bladder wall neoplasm.. No evidence for hepatic metastasis retroperitoneal adenopathy or bone metastasis. Electronically Signed: Santana Valderrama MD at 23:01 EST ,
== END | disposition home or self-care (01) ==
LOC: CT 16:44
PROVIDERS: PCP Student in an Organized Health Care Education/Training Program; Visit Provider Internal Medicine Medical Oncology
DX: C67.9 Malignant neoplasm of bladder, unspecified (principal)
CPT/HCPCS: 71260; 74177; Q9967; A4216